=== PATIENT | female | born 1950 | race Caucasian/White ===

== ENCOUNTER 2019-07-16 06:12 | Day surgery (SDC) | payer OTHER, SELFPAY ==
[2019-07-16] MEDS: PROPARACAINE 0.5% OPHTH SOL 2 DROPS EYE-OP (07:09)
[2019-07-16 07:11] VITALS: BMI 46.4
[2019-07-16] MEDS: CATARACT EYE COMPOUND (10 DROPS/SYRINGE) 3 DROPS EYE-OP (07:14)
[2019-07-16 07:18] VITALS: BP 126/70; PULSE 79; RESP 15; TEMP 36.2; O2SAT 96
--- NOTE | 2019-07-16 07:32 | PM.PREOP ---
Pre-operative Note Interval Note History & Physical reviewed/Exam performed by Physician: Yes Changes to H&P: No
[2019-07-16] MEDS: CHONDROIDTIN/SOD HYALURONATE 1.05 ML SYRINGE INTRAOCULA (08:17)
[2019-07-16] MEDS: BALANCED SALT IRRIG SOLN NO.2 15 ML 5 ML IRR (08:18)
[2019-07-16] MEDS: LIDOCAINE 2% INJ SDV 2 ML INJ (08:18)
[2019-07-16] MEDS: PHENYLEPHRINE/LIDOCAINE VIAL (OR) 0.2 ML EYE-OP (08:19)
[2019-07-16] MEDS: MOXIFLOXACIN INJ 5 MG/ML VIAL EYE-OP (08:20)
[2019-07-16] MEDS: TETRACAINE 0.5% OPHTH DROPS 4 ML 2 DROPS EYE-OP (08:20)
[2019-07-16] MEDS: BALANCED SALT IRRIG SOLN NO.2 500 ML, EPINEPHrine 1 MG IRR (08:20)
--- NOTE | 2019-07-16 08:46 | PM.OP.1 ---
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 The correct patient, surgical site and lens were confirmed. 0.5 % tetracaine drops were placed in the left eye and the cornea was marked with a corneal reference marker. The patient was prepped and draped in the typical sterile manner. A lid speculum was placed in the eye. 2% lidocaine was placed on the eye. A paracentesis port was created with a side-port blade. 0.1 mL of 1% preservative free lidocaine with phenylephrine was injected into the anterior chamber. Viscoelastic was injected into the anterior chamber. A 2.6mm keratome was used to create a clear corneal temporal incision. Cystotome and Utrata forceps were used to create a continuous curvilinear capsulorrhexis. Balanced salt solution was used to hydrodissect the nucleus. Phacoemulsification was used to remove the lens. The capsular bag was inflated with viscoelastic and the cornea was marked at 144 degrees. A Steele ZCT 400 +18.0D lens was inserted into the capsule and rotated to 144 degrees. Viscoelastic was removed and the wound hydrated. The wound was found to be leak free and the eye was assessed to be at normal physiologic pressure. 0.1mL Vigamox was injected into the anterior chamber and the lens was confirmed to be in good position at 144 degrees. The lid speculum was removed and the patient left the operating room in excellent condition. Complications: none Post-operative Condition: stable Disposition: same day surgery
[2019-07-16 08:48] VITALS: BP 154/85; PULSE 67; RESP 20; TEMP 36.8; O2SAT 98
== END 2019-07-16 09:05 | disposition home or self-care (01) ==
PROVIDERS: Family Provider Family Medicine; PCP Family Medicine; Visit Provider Ophthalmology
PROC: (CPT 66984; principal; 2019-07-16 07:45)
DX: H25.12 Age-related nuclear cataract, left eye (principal); E11.9 Type 2 diabetes mellitus without complications; H40.013 Open angle with borderline findings, low risk, bilateral; H35.372 Puckering of macula, left eye
CPT/HCPCS: 66984; J0171; J2250; J3010; V2787

== ENCOUNTER 2019-08-06 06:27 | Day surgery (SDC) | payer OTHER, SELFPAY ==
--- NOTE | 2019-08-06 07:27 | PM.PREOP ---
Pre-operative Note Interval Note History & Physical reviewed/Exam performed by Physician: Yes Changes to H&P: No
[2019-08-06 07:32] VITALS: BP 149/77; PULSE 78; RESP 16; TEMP 36.3; O2SAT 93; BMI 46.8
[2019-08-06] MEDS: PROPARACAINE 0.5% OPHTH SOL 2 DROPS EYE-OP (07:44)
[2019-08-06] MEDS: CATARACT EYE COMPOUND (10 DROPS/SYRINGE) 3 DROPS EYE-OP (07:45)
[2019-08-06] MEDS: PHENYLEPHRINE/LIDOCAINE VIAL (OR) 0.2 ML EYE-OP (08:02)
[2019-08-06] MEDS: MOXIFLOXACIN INJ 5 MG/ML VIAL EYE-OP (08:02)
[2019-08-06] MEDS: TETRACAINE 0.5% OPHTH DROPS 4 ML 2 DROPS EYE-OP (08:03)
[2019-08-06] MEDS: CHONDROIDTIN/SOD HYALURONATE 1.05 ML SYRINGE INTRAOCULA (08:03)
[2019-08-06] MEDS: BALANCED SALT IRRIG SOLN NO.2 15 ML 5 ML IRR (08:03)
[2019-08-06] MEDS: BALANCED SALT IRRIG SOLN NO.2 500 ML, EPINEPHrine 1 MG IRR (08:04)
[2019-08-06] MEDS: LIDOCAINE 2% INJ SDV 2 ML INJ (08:04)
--- NOTE | 2019-08-06 08:30 | PM.OP.1 ---
Procedure & Clinicians Procedure: Cataract extraction with intraocular lens implant, right. Same procedure as scheduled: Yes Indications: Age related visually significant nuclear sclerosis, right Surgeon: Darnell Cota Click Yes if Unassisted: Yes Anesthesia Type: MAC +/- Operative Notes Procedure in detail: The patient was brought to the operating suite. The correct patient, surgical site and lens were confirmed. 0.5 % tetracaine drops were placed in the right eye and the cornea was marked with a cornea reference marker. The patient was prepped and draped in the typical sterile manner. A lid speculum was placed in the eye. 2% lidocaine was placed on the eye. A paracentesis port was created with a side-port blade. 0.1 mL of 1% preservative free lidocaine with phenylephrine was injected into the anterior chamber. Viscoelastic was injected into the anterior chamber. A 2.6mm keratome was used to create a clear corneal temporal incision. Cystotome and Utrata forceps were used to create a continuous curvilinear capsulorrhexis. Balanced salt solution was used to hydrodissect the nucleus. Phacoemulsification was used to remove the lens. The capsular bag was inflated with viscoelastic and the cornea was marked at 22 degrees. A Authernative GRP440 +17.5D lens was inserted into the capsule and rotated to 22 degrees. Viscoelastic was removed and the wound hydrated. The wound was found to be leak free and the eye was assessed to be at normal physiologic pressure. 0.1mL Vigamox was injected into the anterior chamber and the lens was confirmed to be in good position at 22 degrees. The lid speculum was removed and the patient left the operating room in excellent condition. Complications: none Post-operative Condition: stable Disposition: same day surgery
[2019-08-06 08:51] VITALS: BP 141/88; PULSE 73; RESP 16; TEMP 36.1; O2SAT 97
== END 2019-08-06 08:46 | disposition home or self-care (01) ==
PROVIDERS: PCP Family Medicine; Visit Provider Ophthalmology
PROC: (CPT 66984; principal; 2019-08-06 07:45)
DX: H25.11 Age-related nuclear cataract, right eye (principal); G47.33 Obstructive sleep apnea (adult) (pediatric); E03.9 Hypothyroidism, unspecified; E11.9 Type 2 diabetes mellitus without complications
CPT/HCPCS: 66984; J0171; J2250; J3010; V2787

== ENCOUNTER 2020-07-14 14:31 | Emergency (ER) | payer OTHER, SELFPAY ==
[2020-07-14 14:46] VITALS: BP 116/86; PULSE 92; RESP 16; TEMP 36.7; O2SAT 95
[2020-07-14 17:19] VITALS: BP 178/87; PULSE 97; RESP 20; TEMP 36.2; O2SAT 99
--- NOTE | 2020-07-14 18:05 | ED_ITS ---
HPI - Extremity Problem General Chief complaint: Extremity Problem,Nontraumatic Stated complaint: left arm and hand swollan Time Seen by Provider: 07/14/20 17:59 Source: patient Mode of arrival: Ambulatory Limitations: no limitations History of Present Illness HPI Narrative: 69-year-old female nonsmoker with history of valve repair and relatively recent pacemaker surgery presents with a day and a half of left arm swelling and no pain. She denies any injury. She denies any history of clot or cancer. She's had no fever, chills, nausea or vomiting. MD Complaint: extremity swelling Onset (ago): day(s) Location: left Associated symptoms: denies other symptoms Context: recent surgery/procedure Related Data Home Medications Medication Instructions Recorded Confirmed aspirin 325 mg PO DAILY 07/16/19 08/06/19 carvedilol 25 mg PO BID 07/16/19 08/06/19 levothyroxine 75 mcg PO DAILY 07/16/19 08/06/19 Previous Rx's Medication Instructions Recorded enoxaparin [Lovenox] 80 mg SUBCUT Q12H 7 Days #11.2 ml 07/14/20 enoxaparin [Lovenox] 100 mg SUBCUT Q12H 7 Days #14 ml 07/14/20 warfarin 5 mg PO DAILY #14 tab 07/14/20 Allergies Allergy/AdvReac Type Severity Reaction Status Date / Time codeine AdvReac Mild Headache Verified 07/14/20 14:46 lisinopril AdvReac Mild Cough Verified 07/14/20 14:46 atenolol AdvReac Unknown fatigue Verified 07/14/20 14:46 metoprolol AdvReac Unknown Joint Pain Verified 07/14/20 14:46 Review of Systems Constitutional Constitutional: Denies chills, Denies fatigue, Denies fever(s), Denies frequent falls, Denies lethargy and Denies weakness Eyes Eyes: Denies change in vision, Denies eye discharge, Denies irritation and Denies loss of vision ENT Ears, Nose, Mouth, and Throat: Denies change in voice, Denies dizziness, Denies neck pain, Denies sore throat and Denies throat swelling Cardiovascular Cardiovascular: Denies chest pain, Denies irregular heart rhythm, Denies lightheadedness, Denies palpitations, Denies dyspnea, Denies dyspnea on exertion and Denies orthopnea Respiratory Respiratory: Denies cough, Denies dyspnea, Denies dyspnea on exertion and Denies wheezing Gastrointestinal Gastrointestinal: Denies abdominal pain, Denies change in bowel habits, Denies diarrhea, Denies nausea and Denies vomiting Musculoskeletal Musculoskeletal: Denies neck pain and Denies numbness Integumentary/Breasts Skin/Breast: Denies pruritus, Denies erythema, Denies rash and Denies wounds Comments: arm swelling, redness Neurologic Neurologic: Denies behavioral changes, Denies confusion, Denies dizziness, Denies frequent falls, Denies loss of vision, Denies numbness and Denies weakness Psychiatric Psychiatric: Denies anxiety, Denies behavioral changes, Denies confusion, Denies depression, Denies homicidal ideation and Denies suicidal ideation Endocrine Endocrine: Denies fatigue, Denies flushing and Denies palpitations Hematologic/Lymphatic Hematologic/Lymphatic: Denies easy bruising Allergic/Immunologic Allergic/Immunologic: Denies urticaria, Denies throat swelling and Denies wheezing Patient History Medical History Diabetes Kidney disease Surgical History Status post aortic valve repair Social History household members: other Smoking Status: Never smoker Smoking Status: Never smoker alcohol intake frequency: holidays/special occasions only Substance Use Type: does not use Exam Narrative Exam Narrative: GENERAL: [69] year old patient appears stated age. Well- nourished, well-developed patient, in mild distress. HEAD: Atraumatic. Normocephalic. EYES: Pupils equal round and reactive. Extraocular motions intact. No scleral icterus. No injection or drainage. ENT: Nose without bleeding, purulent drainage. Throat without erythema, tonsillar hypertrophy or exudate. Airway patent. NECK: Trachea midline. Non tender CARDIOVASCULAR: Regular rate and rhythm without murmurs, gallops, or rubs. RESPIRATORY: Clear to auscultation. Breath sounds equal bilaterally. No wheezes, rales, or rhonchi. GASTROINTESTINAL: Abdomen soft, non-tender, nondistended. EXTREMITIES: Left upper extremity edema from the fingers to the axilla, mild erythema, pulse and sensation intact. No pain on palpation BACK: Nontender without deformity or crepitance. No flank tenderness. NEURO: AOx3. SKIN: No rash or erythema of visible areas Initial Vital Signs Initial Vital Signs: Vital Signs Temperature 98.1 F 07/14/20 14:46 Pulse Rate 92 H 07/14/20 14:46 Respiratory Rate 16 07/14/20 14:46 Blood Pressure 116/86 07/14/20 14:46 Pulse Oximetry 95 07/14/20 14:46 Course Orders Ordered: ED Orders 07/14/20 18:13 US periph venous up extrem lt Stat 07/14/20 18:37 Basic Metabolic Panel Stat C-Reactive Protein Quant Stat Complete Blood Count AUTO DIFF Stat Erythrocyte Sedimentation Rate Stat Prothrombin Time INR Stat Discontinued Medications Enoxaparin Sodium (Enoxaparin 100 Mg/Ml Syringe) 180 mg 1 mg/kg (180 mg) SUBCUT BID STEPHANI Enoxaparin Sodium (Enoxaparin 100 Mg/Ml Syringe) 180 mg 1 mg/kg (180 mg) SUBCUT NOW ONE Stop: 07/14/20 19:46 Last Admin: 07/14/20 19:48 Dose: 180 mg Documented by: SHARONA Vital Signs Vital signs: Vital Signs - 8 hr 07/14/20 20:04 Pulse Rate 95 H Respiratory Rate 15 Blood Pressure 196/84 H Pulse Oximetry 96 MDM - Extremity (Nontraumatic) Lab Data Result diagrams: 07/14/20 18:37 07/14/20 18:37 Labs: Lab Results 07/14/20 07/14/20 07/14/20 Range/Units 18:37 18:37 18:37 WBC 10.8 (4.5-11.0) X10^3/uL RBC 4.37 (4.0-5.2) X10^6/uL Hgb 13.1 (12.0-16.0) g/dL Hct 38.9 (36-46) % MCV 88.9 (80-100) fL MCH 30.1 (26-34) PG MCHC 33.8 (30-36) % RDW 13.4 (11.6-14.8) % Plt Count 256 (150-400) X10^3/uL Neut % (Auto) 73.4 (50-75) % Lymph % (Auto) 14.3 L (25-40) % [place] % (Auto) 8.1 (3-14) % Eos % (Auto) 3.2 (2-4) % Baso % (Auto) 1.0 (0-2) % Neut # (Auto) 7900 H (3233-7227) /uL Lymph # (Auto) 1500 (7106-8994) /uL [place] # (Auto) 900 (0-900) /uL Eos # (Auto) 300 (0-450) /uL Baso # (Auto) 100 (0-100) /uL ESR 28 H (0-20) MM/HR PT 12.0 (10.1-12.7) SECONDS INR 1.0 (0.9-1.3) Sodium 136 L (137-145) mmol/L Potassium 4.5 (3.4-5.1) mmol/L Chloride 103 (98-107) mmol/L Carbon Dioxide 30 (22-32) mmol/L BUN 22 H (7-17) mg/dL Creatinine 1.55 H (0.52-1.04) mg/dL Estimated GFR 33.3 L (>60) mL/min BUN/Creatinine Ratio 14.2 (6-22) Glucose 118 H (80-110) mg/dL Calcium 9.3 (8.4-10.2) mg/dL C-Reactive Protein 1.1 H (<1.0) mg/dL Imaging Data US - DVT: Radiologist's Impression: Rosa Mcqueen 69 F [address] [id number] ReportSigned Patient: Rosa Mcqueen EMR#: [id number]: 1950cct:[id number]/Sex: 69 / FDate of Service: 07/14/20Loc: EDAccession Number: [id number] Procedure: US periph venous up extrem lt Ordering Provider: Michel Dahl D.O. PROCEDURE: US PERIPH VENOUS UP EXTREM LT INDICATIONS: EDEMA TECHNIQUE: Real-time imaging, as well as color and pulse Doppler interrogation, was pe rformed of the left upper extremity deep veins from the inferior neck to the antecubital fossa. COMPARISON: None. FINDINGS: Thrombus is seen within the subclavian, axillary, cephalic, basilic, and brachial veins. IMPRESSION: Left upper extremity deep and superficial venous thrombus. Dictated by: Brii Middleton M.D. on 07/14/2020 at 19:20 Approved by: Brii Middleton M.D. on 07/14/2020 at 19:21 [facility] Narrative Medical decision making narrative: Given history of valve disease patient bridged on Lovenox and Rx given for coumadin. Extensive discussion with patient regarding the importance of close follow up with PCP to evaluate INR. REturn precautions given. Questions answered to her apparent satisfaction Discharge Plan Departure Patient Disposition: Home Clinical Impression: Deep venous thrombosis of upper extremity Instructions: Deep Vein Thrombosis Activity Restrictions/Additional Instructions: *You have been diagnosed with [DVT within your left subclavian, axillary, cephalic, basilic, and brachial veins] *What to do: *Take medications as directed: Your given a shot of Lovenox tonight, as well as a prescription for Coumadin. You will need to be on Lovenox and Coumadin until your Coumadin levels are therapeutic. Coumadin is a blood thinner that needs to be followed closely by your primary care provider or enrobing machine feeder as it often takes multiple days or weeks to get the levels just right. *Follow up very closely with your primary care provider, call in the morning for an appointment. Let them know you were seen in the Emergency Department and that we ask that you be seen in follow up *Return to ER if you should have any new, worsening or concerning symptoms, such as [any bleeding problems, or other bothersome symptoms] Prescriptions: New warfarin 5 mg tablet 5 mg PO DAILY Qty: 14 RF: 0 enoxaparin [Lovenox] 100 mg/mL syringe 100 mg SUBCUT Q12H 7 Days Qty: 14 RF: 0 enoxaparin [Lovenox] 80 mg/0.8 mL syringe 80 mg SUBCUT Q12H 7 Days Qty: 11.2 RF: 0 No Action carvedilol 25 mg Tablet 25 mg PO BID RF: 0 aspirin 325 mg Tablet 325 mg PO DAILY RF: 0 levothyroxine 75 mcg Tablet 75 mcg PO DAILY RF: 0 Referrals: [facility] [Outside] Faith Ornelas MD [Primary Care Provider] -
--- NOTE | 2020-07-14 18:13 | DI.US.S_ITS ---
PROCEDURE: US PERIPH VENOUS UP EXTREM LT INDICATIONS: EDEMA TECHNIQUE: Real-time imaging, as well as color and pulse Doppler interrogation, was performed of the left upper extremity deep veins from the inferior neck to the antecubital fossa. COMPARISON: None. FINDINGS: Thrombus is seen within the subclavian, axillary, cephalic, basilic, and brachial veins. IMPRESSION: Left upper extremity deep and superficial venous thrombus. Dictated by: Brii Middleton M.D. on 07/14/2020 at 19:20 Approved by: Brii Middleton M.D. on 07/14/2020 at 19:21
[2020-07-14 18:45] LABS: Add Manual Diff / Slide Review NO; Basophils Absolute Auto 100 /uL (0-100); Eosinophils Absolute Auto 300 /uL (0-450); Eosinophils Percent Auto 3.2 % (2-4); Hematocrit 38.9 % (36-46); Hemoglobin 13.1 g/dL (12.0-16.0); Lymphocytes Absolute Auto 1500 /uL (1100-4500); Lymphocytes Percent Auto 14.3 % (25-40); Mean Corpuscular HGB Conc 33.8 % (30-36); Mean Corpuscular Hemoglobin 30.1 PG (26-34); Mean Corpuscular Volume 88.9 fL (80-100); Monocytes Absolute Auto 900 /uL (0-900); Monocytes Percent Auto 8.1 % (3-14); Neutrophils Absolute Auto 7900 /uL (1500-7000); Neutrophils Percent Auto 73.4 % (50-75); Platelet Count 256 X10^3/uL (150-400); Red Blood Cell Count 4.37 X10^6/uL (4.0-5.2); Red Cell Distribution Width 13.4 % (11.6-14.8); White Blood Cell Count 10.8 X10^3/uL (4.5-11.0)
[2020-07-14 19:00] LABS: BUN Creatinine Ratio 14.2 (6-22); Blood Urea Nitrogen 22 mg/dL (7-17); C-Reactive Protein Quant 1.1 mg/dL (<1.0); Calcium 9.3 mg/dL (8.4-10.2); Carbon Dioxide 30 mmol/L (22-32); Chloride 103 mmol/L (98-107); Estimated Glomerular Filt Rate 33.3 mL/min (>60); Glucose 118 mg/dL (80-110); HEMOLYSIS < 15 (0-50); Potassium 4.5 mmol/L (3.4-5.1); Sodium 136 mmol/L (137-145)
[2020-07-14 19:06] LABS: Erythrocyte Sedimentation Rate 28 MM/HR (0-20)
[2020-07-14] MEDS: ENOXAPARIN 100 MG/ML SYRINGE 180 MG SUBCUT (19:48)
[2020-07-14 20:04] VITALS: BP 196/84; PULSE 95; RESP 15; O2SAT 96
--- NOTE | 2020-07-14 20:08 | PC.NURSE ---
Instructed patient on Lovenox injections. Discussed on how to give injections. Demonstrated one injections and Pt able to demonstrate an injection.
== END 2020-07-14 20:10 | disposition home or self-care (01) ==
PROVIDERS: Emergency Provider Emergency Medicine; PCP Family Medicine
DX: I82.622 Acute embolism and thrombosis of deep veins of left upper extremity (principal); Z95.5 Presence of coronary angioplasty implant and graft; Z95.0 Presence of cardiac pacemaker; Z79.82 Long term (current) use of aspirin; E11.9 Type 2 diabetes mellitus without complications; N18.9 Chronic kidney disease, unspecified
CPT/HCPCS: 36415; 80048; 85025; 85610; 85651; 86140; 93971; 96372; 99283; 99284; J1650

== ENCOUNTER → 2020-07-18 11:25 | Outpatient (CLI) | payer OTHER, SELFPAY ==
[2020-07-18 12:03] LABS: Add Manual Diff / Slide Review NO; Basophils Absolute Auto 100 /uL (0-100); Basophils Percent Auto 1.3 % (0-2); Eosinophils Absolute Auto 300 /uL (0-450); Hematocrit 36.8 % (36-46); Hemoglobin 12.2 g/dL (12.0-16.0); Lymphocytes Absolute Auto 1400 /uL (1100-4500); Lymphocytes Percent Auto 19.2 % (25-40); Mean Corpuscular HGB Conc 33.1 % (30-36); Mean Corpuscular Hemoglobin 29.5 PG (26-34); Mean Corpuscular Volume 89.1 fL (80-100); Monocytes Absolute Auto 800 /uL (0-900); Monocytes Percent Auto 11.1 % (3-14); Neutrophils Absolute Auto 4800 /uL (1500-7000); Neutrophils Percent Auto 64.4 % (50-75); Platelet Count 237 X10^3/uL (150-400); Red Blood Cell Count 4.13 X10^6/uL (4.0-5.2); Red Cell Distribution Width 13.6 % (11.6-14.8); White Blood Cell Count 7.5 X10^3/uL (4.5-11.0)
[2020-07-18 12:10] LABS: INR 1.3 (0.9-1.3); Prothrombin Time 15.1 SECONDS (10.1-12.7)
[2020-07-18 12:25] LABS: Estimated Glomerular Filt Rate 29.7 mL/min (>60)
== END ==
PROVIDERS: PCP Family Medicine; Referring Provider Emergency Medicine; Visit Provider Emergency Medicine
DX: I74.9 Embolism and thrombosis of unspecified artery (principal)
CPT/HCPCS: 36415; 82565; 85025; 85610

== ENCOUNTER → 2020-07-19 12:28 | Outpatient (CLI) | payer OTHER, SELFPAY ==
[2020-07-19 13:02] LABS: INR 1.5 (0.9-1.3)
[2020-07-19 13:12] LABS: Add Manual Diff / Slide Review NO; Basophils Absolute Auto 100 /uL (0-100); Basophils Percent Auto 1.1 % (0-2); Eosinophils Absolute Auto 300 /uL (0-450); Hematocrit 37.5 % (36-46); Hemoglobin 12.3 g/dL (12.0-16.0); Lymphocytes Absolute Auto 1600 /uL (1100-4500); Mean Corpuscular HGB Conc 32.9 % (30-36); Mean Corpuscular Hemoglobin 29.5 PG (26-34); Mean Corpuscular Volume 89.6 fL (80-100); Monocytes Absolute Auto 900 /uL (0-900); Monocytes Percent Auto 10.8 % (3-14); Neutrophils Absolute Auto 5100 /uL (1500-7000); Neutrophils Percent Auto 64.1 % (50-75); Platelet Count 244 X10^3/uL (150-400); Red Blood Cell Count 4.19 X10^6/uL (4.0-5.2); Red Cell Distribution Width 13.7 % (11.6-14.8)
[2020-07-19 13:26] LABS: Estimated Glomerular Filt Rate 32.3 mL/min (>60)
== END ==
PROVIDERS: PCP Family Medicine; Referring Provider Emergency Medicine; Visit Provider Emergency Medicine
DX: I74.9 Embolism and thrombosis of unspecified artery (principal)
CPT/HCPCS: 36415; 82565; 85025; 85610

== ENCOUNTER → 2020-07-20 12:10 | Outpatient (CLI) | payer OTHER, SELFPAY ==
[2020-07-20 12:54] LABS: Prothrombin Time 22.9 SECONDS (10.1-12.7)
== END ==
PROVIDERS: PCP Family Medicine; Referring Provider Emergency Medicine; Visit Provider Emergency Medicine
DX: I74.9 Embolism and thrombosis of unspecified artery (principal)
CPT/HCPCS: 36415; 85610

== ENCOUNTER → 2020-07-21 10:53 | Outpatient (CLI) | payer OTHER, SELFPAY ==
[2020-07-21 11:13] LABS: Add Manual Diff / Slide Review NO; Basophils Absolute Auto 100 /uL (0-100); Basophils Percent Auto 1.2 % (0-2); Eosinophils Absolute Auto 300 /uL (0-450); Eosinophils Percent Auto 4.5 % (2-4); Hematocrit 35.8 % (36-46); Hemoglobin 11.8 g/dL (12.0-16.0); Lymphocytes Absolute Auto 1500 /uL (1100-4500); Lymphocytes Percent Auto 22.4 % (25-40); Mean Corpuscular HGB Conc 32.9 % (30-36); Mean Corpuscular Hemoglobin 29.4 PG (26-34); Mean Corpuscular Volume 89.4 fL (80-100); Monocytes Absolute Auto 800 /uL (0-900); Neutrophils Absolute Auto 4100 /uL (1500-7000); Neutrophils Percent Auto 59.9 % (50-75); Platelet Count 222 X10^3/uL (150-400); Red Blood Cell Count 4.01 X10^6/uL (4.0-5.2); Red Cell Distribution Width 13.9 % (11.6-14.8); White Blood Cell Count 6.8 X10^3/uL (4.5-11.0)
[2020-07-21 11:21] LABS: INR 2.2 (0.9-1.3)
[2020-07-21 11:24] LABS: Estimated Glomerular Filt Rate 30.5 mL/min (>60)
== END ==
PROVIDERS: PCP Family Medicine; Referring Provider Emergency Medicine; Visit Provider Emergency Medicine
DX: I74.9 Embolism and thrombosis of unspecified artery (principal)
CPT/HCPCS: 36415; 82565; 85025; 85610

== ENCOUNTER → 2020-07-22 11:44 | Outpatient (CLI) | payer OTHER, SELFPAY ==
[2020-07-22 12:21] LABS: INR 2.1 (0.9-1.3); Prothrombin Time 23.7 SECONDS (10.1-12.7)
== END ==
PROVIDERS: PCP Family Medicine; Referring Provider Emergency Medicine; Visit Provider Emergency Medicine
DX: I82.409 Acute embolism and thrombosis of unspecified deep veins of unspecified lower extremity (principal)
CPT/HCPCS: 36415; 85610

== ENCOUNTER → 2020-07-26 10:07 | Outpatient (CLI) | payer OTHER, SELFPAY ==
[2020-07-26 10:50] LABS: Prothrombin Time 34.8 SECONDS (10.1-12.7)
== END ==
PROVIDERS: PCP Family Medicine; Referring Provider Internal Medicine Clinical Cardiac Electrophysiology; Visit Provider Internal Medicine Clinical Cardiac Electrophysiology
DX: I82.409 Acute embolism and thrombosis of unspecified deep veins of unspecified lower extremity (principal)
CPT/HCPCS: 36415; 85610

== ENCOUNTER → 2020-07-29 11:17 | Outpatient (CLI) | payer OTHER, SELFPAY ==
[2020-07-29 11:37] LABS: INR 3.3 (0.9-1.3); Prothrombin Time 37.6 SECONDS (10.1-12.7)
== END ==
PROVIDERS: PCP Family Medicine; Referring Provider Internal Medicine Clinical Cardiac Electrophysiology; Visit Provider Internal Medicine Clinical Cardiac Electrophysiology
DX: I82.409 Acute embolism and thrombosis of unspecified deep veins of unspecified lower extremity (principal)
CPT/HCPCS: 36415; 85610

== ENCOUNTER → 2020-08-11 10:50 | Outpatient (CLI) | payer OTHER, SELFPAY ==
[2020-08-11 11:14] LABS: INR 3.9 (0.9-1.3); Prothrombin Time 44.6 SECONDS (10.1-12.7)
== END ==
PROVIDERS: PCP Family Medicine; Referring Provider Internal Medicine Clinical Cardiac Electrophysiology; Visit Provider Internal Medicine Clinical Cardiac Electrophysiology
DX: I82.409 Acute embolism and thrombosis of unspecified deep veins of unspecified lower extremity (principal)
CPT/HCPCS: 36415; 85610

== ENCOUNTER → 2020-08-18 11:05 | Outpatient (CLI) | payer OTHER, SELFPAY ==
[2020-08-18 11:52] LABS: INR 2.8 (0.9-1.3); Prothrombin Time 32.2 SECONDS (10.1-12.7)
== END ==
PROVIDERS: PCP Family Medicine; Referring Provider Internal Medicine Clinical Cardiac Electrophysiology; Visit Provider Internal Medicine Clinical Cardiac Electrophysiology
DX: I82.409 Acute embolism and thrombosis of unspecified deep veins of unspecified lower extremity (principal)
CPT/HCPCS: 36415; 85610

== ENCOUNTER → 2020-09-01 11:08 | Outpatient (CLI) | payer OTHER, SELFPAY ==
[2020-09-01 12:39] LABS: INR 3.2 (0.9-1.3); Prothrombin Time 36.5 SECONDS (10.1-12.7)
== END ==
PROVIDERS: PCP Family Medicine; Referring Provider Internal Medicine Clinical Cardiac Electrophysiology; Visit Provider Internal Medicine Clinical Cardiac Electrophysiology
DX: I82.409 Acute embolism and thrombosis of unspecified deep veins of unspecified lower extremity (principal)
CPT/HCPCS: 36415; 85610

== ENCOUNTER → 2020-09-09 09:07 | Outpatient (CLI) | payer OTHER, SELFPAY ==
[2020-09-09 09:56] LABS: INR 2.9 (0.9-1.3); Prothrombin Time 33.3 SECONDS (10.1-12.7)
== END ==
PROVIDERS: PCP Family Medicine; Referring Provider Internal Medicine Clinical Cardiac Electrophysiology; Visit Provider Internal Medicine Clinical Cardiac Electrophysiology
DX: I82.409 Acute embolism and thrombosis of unspecified deep veins of unspecified lower extremity (principal)
CPT/HCPCS: 36415; 85610

== ENCOUNTER → 2020-09-23 10:09 | Outpatient (CLI) | payer OTHER, SELFPAY ==
[2020-09-23 11:38] LABS: INR 2.6 (0.9-1.3); Prothrombin Time 29.3 SECONDS (10.1-12.7)
[2020-09-23 12:04] LABS: Free T4, Direct Thyroxine 1.46 ng/dL (0.78-2.19)
[2020-09-23 13:35] LABS: Thyroid Stimulating Hormone 3.08 uIU/mL (0.47-4.68)
== END ==
PROVIDERS: Internal Medicine Clinical Cardiac Electrophysiology; PCP Family Medicine; Referring Provider Internal Medicine; Visit Provider Internal Medicine
DX: E89.0 Postprocedural hypothyroidism (principal); I82.409 Acute embolism and thrombosis of unspecified deep veins of unspecified lower extremity
CPT/HCPCS: 36415; 84439; 84443; 85610

== ENCOUNTER → 2020-10-14 12:30 | Outpatient (CLI) | payer OTHER, SELFPAY ==
[2020-10-14 12:54] LABS: INR 3.4 (0.9-1.3); Prothrombin Time 38.5 SECONDS (10.1-12.7)
== END ==
PROVIDERS: PCP Family Medicine; Referring Provider Internal Medicine Clinical Cardiac Electrophysiology; Visit Provider Internal Medicine Clinical Cardiac Electrophysiology
DX: I82.409 Acute embolism and thrombosis of unspecified deep veins of unspecified lower extremity (principal)
CPT/HCPCS: 36415; 85610

== ENCOUNTER → 2020-10-21 16:04 | Outpatient (CLI) | payer OTHER, SELFPAY ==
[2020-10-21 16:50] LABS: Hematocrit 38.7 % (36-46); Hemoglobin 12.9 g/dL (12.0-16.0)
[2020-10-21 17:23] LABS: BUN Creatinine Ratio 9.5 (6-22); Blood Urea Nitrogen 14 mg/dL (7-17); Calcium 9.7 mg/dL (8.4-10.2); Carbon Dioxide 24 mmol/L (22-32); Chloride 104 mmol/L (98-107); Estimated Glomerular Filt Rate 35.3 mL/min (>60); Glucose 121 mg/dL (80-110); HEMOLYSIS < 15 (0-50); Potassium 4.5 mmol/L (3.4-5.1); Sodium 138 mmol/L (137-145)
[2020-10-21 17:40] LABS: Protein (Total) Urine Random 40 mg/dL (0-12); Protein Creatinine Ratio Urine 0.32 GRAM/24H
[2020-10-22 08:08] LABS: Parathyroid Hormone Int 45 pg/mL (15-65)
== END ==
PROVIDERS: PCP Family Medicine; Referring Provider Student in an Organized Health Care Education/Training Program; Visit Provider Student in an Organized Health Care Education/Training Program
DX: N05.9 Unspecified nephritic syndrome with unspecified morphologic changes (principal); D64.9 Anemia, unspecified; N25.81 Secondary hyperparathyroidism of renal origin; R80.9 Proteinuria, unspecified
CPT/HCPCS: 36415; 80048; 82570; 83970; 84156; 85014; 85018

== ENCOUNTER → 2020-10-31 12:44 | Outpatient (CLI) | payer OTHER, SELFPAY ==
[2020-10-31 13:15] LABS: INR 2.1 (0.9-1.3); Prothrombin Time 23.4 SECONDS (10.1-12.7)
== END ==
PROVIDERS: PCP Family Medicine; Referring Provider Internal Medicine Clinical Cardiac Electrophysiology; Visit Provider Internal Medicine Clinical Cardiac Electrophysiology
DX: I82.409 Acute embolism and thrombosis of unspecified deep veins of unspecified lower extremity (principal)
CPT/HCPCS: 36415; 85610

== ENCOUNTER → 2020-11-21 13:33 | Outpatient (CLI) | payer OTHER, SELFPAY ==
[2020-11-21 13:57] LABS: INR 1.9 (0.9-1.3); Prothrombin Time 21.9 SECONDS (10.1-12.7)
== END ==
PROVIDERS: PCP Family Medicine; Referring Provider Internal Medicine Clinical Cardiac Electrophysiology; Visit Provider Internal Medicine Clinical Cardiac Electrophysiology
DX: I82.409 Acute embolism and thrombosis of unspecified deep veins of unspecified lower extremity (principal)
CPT/HCPCS: 36415; 85610

== ENCOUNTER → 2020-12-06 10:06 | Outpatient (CLI) | payer OTHER, SELFPAY ==
[2020-12-06 10:43] LABS: INR 2.1 (0.9-1.3); Prothrombin Time 23.7 SECONDS (10.1-12.7)
== END ==
PROVIDERS: PCP Family Medicine; Referring Provider Internal Medicine Clinical Cardiac Electrophysiology; Visit Provider Internal Medicine Clinical Cardiac Electrophysiology
DX: I82.409 Acute embolism and thrombosis of unspecified deep veins of unspecified lower extremity (principal)
CPT/HCPCS: 36415; 85610

== ENCOUNTER → 2020-12-20 12:31 | Outpatient (CLI) | payer OTHER, SELFPAY ==
--- NOTE | 2020-12-20 12:32 | DI.RAD.S_ITS ---
PROCEDURE: XR CHEST 2V INDICATIONS: cough, wheezing, SOB TECHNIQUE: 2 views of the chest were acquired. COMPARISON: None. FINDINGS: Surgical changes and devices: Pacemaking device with dual chamber leads normal. Sternotomy wires, presumed prior CABG. Lungs and pleura: Lungs are clear. No pleural effusions or pneumothorax. Mediastinum: Mediastinal contours are abnormal, best seen on the lateral view, with alveolar consolidation at each lung base greater on the left than right. A slight subpulmonic pleural effusion is suspected bilaterally but lung volumes are large and COPD is suspected, and blunting of the costophrenic sulci may explain that appearance alternatively.. Heart size is normal. Bones and chest wall: No suspicious bony abnormalities. Soft tissues appear unremarkable. IMPRESSION: Suspect bilateral posterior lung base pneumonia pattern. Large lung volumes, COPD is suspected. Quality of visualization due to light film technique and part large body habitus could obscure visualization of a left lung base posterior mass. Depending on the clinical status follow-up by CT scanning may be warranted given relatively poor quality visualization of the lungs and suspected prior smoking history. Dictated by: Alfred Mckeon M.D. on 12/20/2020 at 14:59 Approved by: Alfred Mckeon M.D. on 12/20/2020 at 15:00
== END ==
PROVIDERS: PCP Nurse Practitioner; Referring Provider Nurse Practitioner; Visit Provider Nurse Practitioner
DX: R06.02 Shortness of breath (principal); R05 Cough; R06.2 Wheezing
CPT/HCPCS: 71046

== ENCOUNTER → 2021-01-05 08:06 | Outpatient (CLI) | payer OTHER, SELFPAY ==
[2021-01-05 10:07] LABS: BUN Creatinine Ratio 13.5; Blood Urea Nitrogen 20 mg/dL; Calcium 9.2 mg/dL; Carbon Dioxide 22 mmol/L; Chloride 106 mmol/L; Estimated Glomerular Filt Rate 47.1 mL/min; Glucose 134 mg/dL; HEMOLYSIS < 15; Potassium 4.1 mmol/L; Sodium 137 mmol/L
[2021-01-05 13:29] LABS: Free T4, Direct Thyroxine 1.58 ng/dL
[2021-01-05 13:43] LABS: Thyroid Stimulating Hormone 2.91 uIU/mL
[2021-01-06 21:28] LABS: Thyroglobulin Antibodies < 1.0 IU/mL (0.0-0.9)
== END ==
PROVIDERS: PCP Nurse Practitioner; Referring Provider Internal Medicine; Visit Provider Internal Medicine
DX: Z01.812 Encounter for preprocedural laboratory examination (principal); C73 Malignant neoplasm of thyroid gland; E89.0 Postprocedural hypothyroidism
CPT/HCPCS: 36415; 80048; 83735; 84432; 84439; 84443; 86800

== ENCOUNTER → 2021-01-16 13:18 | Outpatient (CLI) | payer OTHER, SELFPAY ==
--- NOTE | 2021-01-16 13:41 | DI.ECHO.S_ITS ---
:Reason For Study: Congestive Heart Failure :Ordering Physician: BRIGIDO, : :BARRY Performed By: Jeffrey Moss : :Referring: BARRY FOFANA : Interpretation Summary Technically difficult study. Mild concentric left ventricular hypertrophy with ejection fraction 50-55%. The bioprosthetic aortic valve is well-seated. Probably moderate mitral regurgitation. Mild tricuspid regurgitation. The right ventricular systolic pressure is estimated to be at least 33 mmHg based on an estimated right atrial pressure of 3 mm Hg. Procedure: A two-dimensional transthoracic echocardiogram with color flow and Doppler was performed. The study quality was technically difficult. A contrast injection of Definity was performed to improve assessment of LV function. There is no prior echocardiogram noted for this patient. Left Ventricle: The left ventricle is normal in size. There is mild concentric left ventricular hypertrophy. Left ventricular systolic function is low normal. The ejection fraction is estimated to be 50-55%. There are no obvious focal wall motion abnormalities noted but poor endocardial definition reduces the sensitivity for the detection of such. Diastolic function could not be accurately assessed due to unobtainable data. Right Ventricle: The right ventricle grossly appears normal in size with probable normal systolic function. The right ventricle is not well visualized. Atria: The left atrium is not well visualized. Right atrium not well visualized. There is no Doppler evidence for an interatrial shunt. Mitral Valve: The mitral valve is not well visualized. There is moderate mitral regurgitation. Evaluation of regurgitation is inadequate. Aortic Valve: There is a bioprosthetic aortic valve. The prosthetic aortic valve is well-seated. The prosthetic aortic valve appears to open well. No aortic regurgitation is present. Tricuspid Valve: The tricuspid valve is normal in structure and function. There is mild tricuspid regurgitation. The right ventricular systolic pressure is estimated to be at least 33 mmHg based on an estimated right atrial pressure of 3 mm Hg. Pulmonic Valve: The pulmonic valve is not well visualized. Great Vessels: The aortic root is not well visualized. The dimensions of the ascending aorta are normal. The IVC is of normal diameter and collapses greater than 50% with a sniff. This suggests a low right atrial pressure of 3 mm Hg. Pericardium/ Pleura There is no pericardial effusion. There is no pleural effusion. MMode/2D Measurements & Calculations LVIDd: 5.6 cm asc Aorta Diam: 3.0 cm LVIDs: 4.3 cm FS: 24.3 % IVSd: 1.4 cm LVPWd: 1.2 cm LV cummings. diameter/BSA (cm/m^2): 2.0 LV sys. diameter/BSA (cm/m^2): 1.5 TAPSE: 1.8 cm Doppler Measurements & Calculations Ao V2 max: 242.2 cm/sec LVOT Max Kamaljit: 107.8 cm/sec Ao V2 mean: 164.4 cm/sec LV V1 max P.6 mmHg Ao max P.5 mmHg LV V1 VTI: 24.8 cm Ao mean P.3 mmHg sev ratio: 0.51 Ao V2 VTI: 48.2 cm MV E max kamaljit: 177.2 cm/sec TR max kamaljit: 273.3 cm/sec MV A max kamaljit: 94.0 cm/sec TR max P.9 mmHg MV E/A: 1.9 PA V2 max: 98.6 cm/sec Med Peak E' Kamaljit: 5.9 cm/sec PA V2 mean: 66.0 cm/sec E/E' med: 30.1 PA mean P.9 mmHg Lat Peak E' Kamaljit: 10.7 cm/sec PA pr(Accel): 37.5 mmHg E/E' lat: 16.5 E/e' average: 23.3 MV dec time: 0.33 sec Electronically signed by: Ce Kramer on Reading Physician:01/16/2021 05:57 PM
== END ==
PROVIDERS: PCP Nurse Practitioner; Referring Provider Nurse Practitioner; Visit Provider Nurse Practitioner
DX: I07.1 Rheumatic tricuspid insufficiency (principal); R05 Cough; Z86.79 Personal history of other diseases of the circulatory system; Z95.0 Presence of cardiac pacemaker; Z95.3 Presence of xenogenic heart valve
CPT/HCPCS: C8929; Q9957

== ENCOUNTER → 2021-01-17 14:04 | Outpatient (CLI) | payer OTHER, SELFPAY ==
--- NOTE | 2021-01-17 14:06 | DI.CT.S_ITS ---
PROCEDURE: CT CHEST WO CON INDICATIONS: LL Mass, shortness of breath, smoking history TECHNIQUE: Noncontrast 5 mm thick sections acquired from the pulmonary apices to the posterior costophrenic angles. 1 mm lung window, 5 mm thick coronal and sagittal and 7 mm axial MIP reformats were then acquired. For radiation dose reduction, the following was used: automated exposure control, adjustment of mA and/or kV according to patient size. COMPARISON: [facility], CT, CT CHEST WITHOUT CONTRAST, 05/27/2017, 13:54. FINDINGS: Image quality: Excellent. Lungs and pleura: Bibasilar atelectasis and/or scarring is similar to the prior exam. Pleural effusions have resolved Mediastinum: Heart size is normal. No pericardial effusion. No mediastinal adenopathy by size criteria. Thoracic aorta and central pulmonary arteries are normal in size. Esophagus is normal in caliber. No hiatal hernia. Aortic valve replacement remains unchanged. Bones and chest wall: No suspicious bony lesions. No vertebral body compression fractures. No axillary or supraclavicular adenopathy by size criteria. Left hemithyroidectomy present. There is now a left-sided pacemaker present. Midline sternal wires again noted. Abdomen: Visualized upper abdominal solid organs and bowel loops appear normal in the absence of contrast. IMPRESSION: 1. Stable bibasilar atelectasis and or scarring. 2. Resolved left pleural effusion. 3. New dual-chamber pacemaker, stable midline sternotomy wires and aortic valve replacement. Dictated by: Jorge A Curry M.D. on 01/17/2021 at 16:34 Approved by: Jroge A Curry M.D. on 01/17/2021 at 16:59
== END ==
PROVIDERS: PCP Nurse Practitioner; Referring Provider Nurse Practitioner; Visit Provider Nurse Practitioner
DX: R06.02 Shortness of breath (principal); Z95.0 Presence of cardiac pacemaker; R91.8 Other nonspecific abnormal finding of lung field; Z87.891 Personal history of nicotine dependence
CPT/HCPCS: 71250

== ENCOUNTER → 2021-01-19 12:43 | Outpatient (CLI) | payer OTHER, SELFPAY ==
[2021-01-19 19:23] LABS: BUN Creatinine Ratio 11.5; Blood Urea Nitrogen 22 mg/dL; Calcium 9.5 mg/dL; Carbon Dioxide 24 mmol/L; Chloride 103 mmol/L; Estimated Glomerular Filt Rate 34.9 mL/min; Glucose 109 mg/dL; HEMOLYSIS < 15; Potassium 4.5 mmol/L; Sodium 138 mmol/L
== END ==
PROVIDERS: PCP Nurse Practitioner; Referring Provider Nurse Practitioner; Visit Provider Nurse Practitioner
DX: E87.6 Hypokalemia (principal); R60.9 Edema, unspecified; T50.2X5A Adverse effect of carbonic-anhydrase inhibitors, benzothiadiazides and other diuretics, initial encounter
CPT/HCPCS: 36415; 80048; 83735

== ENCOUNTER → 2021-02-02 15:12 | Outpatient (CLI) | payer OTHER, SELFPAY ==
[2021-02-02 17:13] LABS: Hematocrit 38.4 %; Hemoglobin 12.6 g/dL
[2021-02-02 21:02] LABS: BUN Creatinine Ratio 9.6; Blood Urea Nitrogen 18 mg/dL; Calcium 9.2 mg/dL; Carbon Dioxide 23 mmol/L; Chloride 104 mmol/L; Glucose 89 mg/dL; HEMOLYSIS < 15; Potassium 3.9 mmol/L; Sodium 136 mmol/L
[2021-02-02 21:04] LABS: Protein (Total) Urine Random 24 mg/dL
[2021-02-02 21:09] LABS: Magnesium 1.8 mg/dL
[2021-02-03 08:46] LABS: Parathyroid Hormone Int 53 pg/mL (15-65)
== END ==
PROVIDERS: PCP Nurse Practitioner; Referring Provider Student in an Organized Health Care Education/Training Program; Visit Provider Student in an Organized Health Care Education/Training Program
DX: N05.9 Unspecified nephritic syndrome with unspecified morphologic changes (principal); R80.9 Proteinuria, unspecified; D64.9 Anemia, unspecified; N25.81 Secondary hyperparathyroidism of renal origin; R60.0 Localized edema; T50.1X5A Adverse effect of loop [high-ceiling] diuretics, initial encounter
CPT/HCPCS: 36415; 80048; 82570; 83735; 83970; 84156; 85014; 85018

== ENCOUNTER → 2021-03-28 16:20 | Outpatient (CLI) | payer OTHER, SELFPAY ==
[2021-03-28 18:42] LABS: Cholesterol 182 mg/dL; HDL Cholesterol 45 mg/dL; LDL Cholesterol Calculated 112 mg/dL; Triglycerides 126 mg/dL
== END ==
PROVIDERS: PCP Nurse Practitioner; Referring Provider Internal Medicine Cardiovascular Disease; Visit Provider Internal Medicine Cardiovascular Disease
DX: E78.5 Hyperlipidemia, unspecified (principal)
CPT/HCPCS: 36415; 80061

== ENCOUNTER → 2021-06-15 11:29 | Outpatient (CLI) | payer OTHER, SELFPAY ==
[2021-06-15 12:21] LABS: Hematocrit 37.9 %; Hemoglobin 12.8 g/dL; Mean Corpuscular HGB Conc 33.8 %; Mean Corpuscular Hemoglobin 29.7 PG; Mean Corpuscular Volume 87.9 fL; Platelet Count 237 X10^3/uL; Red Blood Cell Count 4.31 X10^6/uL; White Blood Cell Count 7.3 X10^3/uL
[2021-06-15 14:12] LABS: Alanine Aminotransferase 21 IU/L; Albumin 3.8 g/dL; Albumin Globulin Ratio 1.2; Alkaline Phosphatase 64 U/L; Aspartate Aminotransferase 25 IU/L; BUN Creatinine Ratio 14.3; Bilirubin Total 0.7 mg/dL; Blood Urea Nitrogen 25 mg/dL; Calcium 9.3 mg/dL; Carbon Dioxide 25 mmol/L; Chloride 104 mmol/L; Estimated Glomerular Filt Rate 38.8 mL/min; Globulin 3.3 g/dL; Glucose 118 mg/dL; HEMOLYSIS < 15; Potassium 4.8 mmol/L; Sodium 138 mmol/L; Total Protein 7.1 g/dL
[2021-06-15 14:25] LABS: Magnesium 2.1 mg/dL
[2021-06-15 22:12] LABS: Creatinine Urine Random 55.2 mg/dL; Protein (Total) Urine Random 11 mg/dL; Protein Creatinine Ratio Urine 0.19 GRAM/24H
[2021-06-16 08:42] LABS: Parathyroid Hormone Int 46 pg/mL (15-65)
== END ==
PROVIDERS: PCP Nurse Practitioner; Referring Provider Student in an Organized Health Care Education/Training Program; Visit Provider Student in an Organized Health Care Education/Training Program
DX: N05.9 Unspecified nephritic syndrome with unspecified morphologic changes (principal); D64.9 Anemia, unspecified; N25.81 Secondary hyperparathyroidism of renal origin; R80.9 Proteinuria, unspecified; I10 Essential (primary) hypertension; R60.0 Localized edema; Z79.899 Other long term (current) drug therapy
CPT/HCPCS: 36415; 80053; 82570; 83735; 83970; 84156; 85027

== ENCOUNTER → 2021-07-12 11:30 | Outpatient (CLI) | payer OTHER, MEDICARE, SELFPAY | PROVIDERS: PCP Nurse Practitioner; Referring Provider Internal Medicine Endocrinology, Diabetes & Metabolism; Visit Provider Internal Medicine Endocrinology, Diabetes & Metabolism | DX: E89.0 Postprocedural hypothyroidism (principal) | CPT/HCPCS: 36415; 84443 ==

== ENCOUNTER → 2021-11-23 12:13 | Outpatient (CLI) | payer MEDICARE, OTHER, SELFPAY ==
[2021-11-23 13:53] LABS: Hematocrit 38.6 % (36-46); Hemoglobin 13.1 g/dL (12.0-16.0)
[2021-11-23 14:14] LABS: BUN Creatinine Ratio 12.3 (6-22); Blood Urea Nitrogen 21 mg/dL (7-17); Carbon Dioxide 30 mmol/L (22-32); Chloride 100 mmol/L (98-107); Estimated Glomerular Filt Rate 32 mL/min (>60); Glucose 117 mg/dL (80-110); HEMOLYSIS < 15 (0-50); Potassium 4.4 mmol/L (3.4-5.1); Sodium 135 mmol/L (137-145)
[2021-11-23 14:15] LABS: Alanine Aminotransferase 15 IU/L (<35); Albumin 3.9 g/dL (3.5-5.0); Albumin Globulin Ratio 1.1 (1.0-2.8); Alkaline Phosphatase 58 U/L (38-126); Aspartate Aminotransferase 22 IU/L (14-36); BUN Creatinine Ratio 12.4 (6-22); Bilirubin Total 0.6 mg/dL (0.2-1.3); Blood Urea Nitrogen 21 mg/dL (7-17); Carbon Dioxide 29 mmol/L (22-32); Chloride 101 mmol/L (98-107); Estimated Glomerular Filt Rate 32 mL/min (>60); Globulin 3.7 g/dL (1.7-4.1); Glucose 117 mg/dL (80-110); HEMOLYSIS < 15 (0-50); Magnesium 2.1 mg/dL (1.6-2.3); Potassium 4.4 mmol/L (3.4-5.1); Sodium 135 mmol/L (137-145); Total Protein 7.6 g/dL (6.3-8.2)
[2021-11-23 16:54] LABS: Creatinine Urine Random 41.5 mg/dL; Protein (Total) Urine Random 12 mg/dL (0-12); Protein Creatinine Ratio Urine 0.28 GRAM/24H
[2021-11-24 08:14] LABS: Parathyroid Hormone Int 41 pg/mL (15-65)
== END ==
PROVIDERS: PCP Nurse Practitioner; Referring Provider Student in an Organized Health Care Education/Training Program; Visit Provider Student in an Organized Health Care Education/Training Program
DX: I10 Essential (primary) hypertension (principal); N05.9 Unspecified nephritic syndrome with unspecified morphologic changes; D64.9 Anemia, unspecified; N25.81 Secondary hyperparathyroidism of renal origin; R80.9 Proteinuria, unspecified; R18.8 Other ascites; R60.0 Localized edema; T50.1X5A Adverse effect of loop [high-ceiling] diuretics, initial encounter
CPT/HCPCS: 36415; 80048; 80053; 82570; 83735; 83970; 84156; 85014; 85018

== ENCOUNTER → 2022-01-10 10:05 | Outpatient (CLI) | payer MEDICARE, OTHER, SELFPAY ==
[2022-01-10 13:59] LABS: COVID19 -Nasal RAPID Negative (Negative)
== END ==
PROVIDERS: PCP Nurse Practitioner; Visit Provider Surgery
DX: Z20.822 Contact with and (suspected) exposure to COVID-19 (principal); Z01.812 Encounter for preprocedural laboratory examination
CPT/HCPCS: 87635; C9803

== ENCOUNTER 2022-01-11 08:13 | Day surgery (SDC) | payer MEDICARE, OTHER, SELFPAY ==
--- NOTE | 2022-01-11 | PATH_ITS ---
[facility] Accession Number: [id number] No. of containers..02 Tissue . 01 Material submitted: . PART A: colon - TRANSVERSE COLON POLYP PART B: colon - DESCENDING COLON POLYP . 01 Diagnosis: A. Transverse Colon Polyp, Biopsy: Tubular adenoma. . B. Descending Colon Polyp, Biopsy: Sessile serrated adenoma. MRV 01/12/2022 1602 Local . 01 Electronically signed: . Moy Pugh MD, PhD, Pathologist NPI- [id number] . 01 Gross description: . Part A: TRANSVERSE COLON POLYP: Received in formalin is 1 fragment(s) of fischer, soft tissue measuring 0.5 x 0.4 x 0.4 cm submitted entirely in 1 cassette(s) Part B: DESCENDING COLON POLYP: Received in formalin is 1 fragment(s) of fischer, soft tissue measuring 0.7 x 0.6 x 0.6 cm submitted entirely in 1 cassette(s) /BLAKE 01/12/2022 0016 Local . 01 Pathologist provided ICD-10: D12.3, D12.4 . 01 CPT . 128523, 111397 Specimen Comment: A courtesy copy of this report has been sent to [phone] Performed at: 01 [facility] [address] [place] [address] [address], [place], [place] [id number] MD Ollie Maldonado MD Phone: [phone]
[2022-01-11 08:54] VITALS: BMI 47.5
[2022-01-11] MEDS: LACTATED RINGERS 1,000 ML 42 ML IV (09:01)
[2022-01-11 09:02] VITALS: BP 172/91; PULSE 90; RESP 16; TEMP 36.4; O2SAT 98
[2022-01-11 09:05] VITALS: BP 149/76
--- NOTE | 2022-01-11 09:16 | PM.HP.1 ---
History of Present Illness History of Present Illness Date Patient Seen: 01/11/22 Time Patient Seen: 09:16 Chief complaint: INC Narrative: Rosa is here for her colonoscopy. See office note from November for details. Patient History Medical History (Updated 12/20/21 @ 15:15 by ELDA Kilgore) Allergies Anxiety (~2019) Chronic cough Class 3 obesity Diabetes Edema Hearing loss Heart block AV complete History of CHF (congestive heart failure) History of DVT (deep vein thrombosis) History of pacemaker Hypertension Hypothyroidism (acquired) Kidney disease Kidney stones Mumps Sleep apnea (~2007) Thyroid nodule Warfarin anticoagulation Surgical History Anesthesia History of aortic valve replacement with porcine valve History of partial nephrectomy (~2016) History of partial thyroidectomy (~2017) Pacemaker (~2019) Status post aortic valve repair (~2011) Status post gender reassignment surgery (~2003) Family & Social History Family History Mother Breast cancer Uterine cancer Mental health problem Sister Mental health problem Grandfather History of heart disease Grandmother Mental health problem Grandfather Broken hip Grandmother Brain bleed Social History: household members other Tobacco & Substance use: Smoking Status Never smoker alcohol intake never alcohol intake frequency holiday/special occasion Substance Use Type does not use Meds Home Medications and Allergies Home Medications Medication Instructions Recorded Confirmed Type carvedilol 25 mg tablet 25 mg PO BID 07/16/19 01/11/22 History bupropion HCl 300 mg 24 hr tablet, 300 mg PO QAM #90 tabs 06/06/21 01/11/22 Rx extended release furosemide 20 mg tablet 40 mg PO DAILY PRN Edema 06/06/21 01/11/22 History levothyroxine 88 mcg tablet 88 mcg PO DAILY 06/06/21 01/11/22 History warfarin 5 mg tablet See Rx Instructions PO .COMPLEX 10/24/21 01/11/22 History naltrexone 50 mg tablet 25 mg PO BID 01/11/22 01/11/22 History potassium chloride 20 mEq 20 meq PO DAILY PRN Edema 01/11/22 01/11/22 History tablet,extended release terazosin 1 mg capsule 1 mg PO DAILY 01/11/22 01/11/22 History Allergies Allergy/AdvReac Type Severity Reaction Status Date / Time codeine AdvReac Mild Headache Verified 11/15/21 13:11 lisinopril AdvReac Mild Cough Verified 11/15/21 13:11 atenolol AdvReac Unknown fatigue Verified 11/15/21 13:11 metoprolol AdvReac Unknown Joint Pain Verified 11/15/21 13:11 Exam Vital Signs (past 8 hours): - 01/11/22 09:02 01/11/22 09:05 Temperature 97.6 F Pulse Rate 90 Respiratory Rate 16 Blood Pressure 172/91 H 149/76 H Pulse Oximetry 98 Oxygen Delivery Method Room Air Oxygen Delivery Method Room Air Const Nutritional Appearance: obese Assessment & Plan Assessment and plan (1) History of colon polyps: Status: Acute Plan Risks and benefits of colonoscopy reviewed. She would like to proceed. Time Spent With Patient Critical Care time: I spent a total of [] minutes of critical care time on this patient's care today; this time is exclusive of procedural time.
[2022-01-11] MEDS: fentaNYL 250 MCG/5 ML INJ 150 MCG IV (09:44)
[2022-01-11] MEDS: MIDAZOLAM 5 MG/5 ML VIAL 7 MG IV (09:44)
--- NOTE | 2022-01-11 09:57 | PM.OP.COLON ---
Operative Date/Time/Diagnoses Date of procedure: 01/11/22 Time of procedure: 09:57 Pre-op diagnosis: History of polyps Post-op diagnosis: same Procedure & Clinicians Study performed: Colonoscopy Same procedure as scheduled: Yes Surgeon: Ridge Alfaro Procedure Notes Procedure in detail: Surgeon: Ridge Alfaro MD Procedure: The patient was brought to the endoscopy suite, placed in left lateral decubitus position. The patient was connected to monitoring devices. A time-out was performed. Sedation was administered. Once the patient was adequately sedated, a digital rectal exam was performed and was normal. The scope was then inserted and advanced to the cecum where the appendiceal orifice was identified and photographed. The scope was then slowly withdrawn over greater than 6 minutes. The mucosa was thoroughly inspected. There was a 2 cm lipoma in the proximal transverse colon. There was a 7 mm layer polyp in the midtransverse colon removed with cold snare. There was a 7 mm polyp in the descending colon removed with cold snare. The scope was retroflexed in the rectum. No abnormalities were noted there. The scope was straightened and removed. The patient was awakened and brought to recovery. Versed: 7 mg Fentanyl: 150 mcg EBL: 5 mL Findings: Proximal transverse colon lipoma, 7 mm polyps in the transverse and descending colon. Scope withdrawal time: 10 Sedation minutes: 18 Post-procedure Recommendations: Will call with biopsy results Disposition: PACU
[2022-01-11 10:00] VITALS: BP 151/66; PULSE 78; RESP 16; TEMP 36.2; O2SAT 97
[2022-01-11 10:05] VITALS: BP 151/86; PULSE 82; RESP 16; O2SAT 98
[2022-01-11 10:17] VITALS: BP 151/85; PULSE 74; RESP 16; TEMP 36.2; O2SAT 100
[2022-01-11 10:28] VITALS: BP 164/84; PULSE 70; RESP 18; TEMP 35.8; O2SAT 96
--- NOTE | 2022-01-11 10:39 | SUR.PHASEII ---
01/11/2261-2031-wnybph from Sreekanth James Added to home instructions to by Sreekanth to resume blood thinner tommorrow. Pacemaker no interogation needed. 1040-Discharged with glasses,coreg pill/bottle and instructions to home with friend [employer] has all belongings. no pain. abdomen soft/large. met criteria for discharge.
== END 2022-01-11 10:40 | disposition home or self-care (01) ==
PROVIDERS: PCP Nurse Practitioner; Referring Provider Surgery; Visit Provider Surgery
PROC: 0DJD8ZZ Inspection of Lower Intestinal Tract, Via Natural or Artificial Opening Endoscopic (ICD-10-PCS; CPT 45378; principal; 2022-01-11 09:15)
DX: Z12.11 Encounter for screening for malignant neoplasm of colon (principal); Z86.010 Personal history of colon polyps; D12.3 Benign neoplasm of transverse colon; D12.4 Benign neoplasm of descending colon
CPT/HCPCS: 45385; 85610; 99152; J2250; J3010

== ENCOUNTER → 2022-01-18 13:29 | Outpatient (CLI) | payer MEDICARE, OTHER, SELFPAY ==
[2022-01-18 15:39] LABS: Hemoglobin A1C% w Est Avg Glu 6.1 % (4.0-6.0)
[2022-01-19 13:10] LABS: Calcium 9.1 mg/dL (8.7-10.3); Parathyroid Hormone, Intact 34 pg/mL (15-65)
== END ==
PROVIDERS: PCP Nurse Practitioner; Referring Provider Nurse Practitioner; Visit Provider Nurse Practitioner
DX: N28.9 Disorder of kidney and ureter, unspecified (principal); E11.9 Type 2 diabetes mellitus without complications
CPT/HCPCS: 36415; 82310; 83036; 83970

== ENCOUNTER → 2022-01-31 12:38 | Outpatient (CLI) | payer MEDICARE, OTHER, SELFPAY ==
[2022-01-31 13:15] LABS: Add Manual Diff / Slide Review NO; Basophils Absolute Auto 100 /uL (0-100); Basophils Percent Auto 1.2 % (0-2); Eosinophils Absolute Auto 200 /uL (0-450); Eosinophils Percent Auto 2.9 % (2-4); Hematocrit 38.5 % (36-46); Hemoglobin 12.9 g/dL (12.0-16.0); Lymphocytes Absolute Auto 1100 /uL (1100-4500); Lymphocytes Percent Auto 13.5 % (25-40); Mean Corpuscular HGB Conc 33.6 % (30-36); Mean Corpuscular Hemoglobin 29.5 PG (26-34); Mean Corpuscular Volume 87.9 fL (80-100); Monocytes Absolute Auto 700 /uL (0-900); Monocytes Percent Auto 8.6 % (3-14); Neutrophils Absolute Auto 6000 /uL (1500-7000); Neutrophils Percent Auto 73.8 % (50-75); Platelet Count 242 X10^3/uL (150-400); Red Blood Cell Count 4.39 X10^6/uL (4.0-5.2); Red Cell Distribution Width 14.1 % (11.6-14.8); White Blood Cell Count 8.1 X10^3/uL (4.5-11.0)
[2022-01-31 13:42] LABS: Alanine Aminotransferase 20 IU/L (<35); Albumin 3.6 g/dL (3.5-5.0); Albumin Globulin Ratio 1.1 (1.0-2.8); Alkaline Phosphatase 60 U/L (38-126); Aspartate Aminotransferase 23 IU/L (14-36); BUN Creatinine Ratio 10.9 (6-22); Bilirubin Total 0.5 mg/dL (0.2-1.3); Blood Urea Nitrogen 17 mg/dL (7-17); Calcium 8.7 mg/dL (8.4-10.2); Carbon Dioxide 23 mmol/L (22-32); Chloride 104 mmol/L (98-107); Cholesterol 182 mg/dL (140-199); Estimated Glomerular Filt Rate 36 mL/min (>60); Globulin 3.3 g/dL (1.7-4.1); Glucose 112 mg/dL (80-110); HDL Cholesterol 56 mg/dL (40-60); HEMOLYSIS < 15 (0-50); LDL Cholesterol Calculated 105 mg/dL (<100); Magnesium 2.1 mg/dL (1.6-2.3); Potassium 4.8 mmol/L (3.4-5.1); Sodium 136 mmol/L (137-145); Total Protein 6.9 g/dL (6.3-8.2); Triglycerides 103 mg/dL (35-150)
[2022-01-31 13:56] LABS: Free T3, Triiodothyronine Free 3.32 pg/mL (2.77-5.27); Free T4, Direct Thyroxine 1.63 ng/dL (0.78-2.19)
[2022-01-31 14:10] LABS: Thyroid Stimulating Hormone 2.04 uIU/mL (0.47-4.68)
[2022-01-31 17:05] LABS: Creatinine Urine Random 154.8 mg/dL
[2022-01-31 17:06] LABS: Microalbumi Creatinin Ratio Ur 95.6 ug/mg CR (<30); Microalbumin Urine Random 14.8 mg/dL (0-1.6)
== END ==
PROVIDERS: PCP Nurse Practitioner; Referring Provider Nurse Practitioner; Visit Provider Nurse Practitioner
DX: E11.9 Type 2 diabetes mellitus without complications (principal); I10 Essential (primary) hypertension; R60.0 Localized edema; R42 Dizziness and giddiness; E03.9 Hypothyroidism, unspecified; N28.9 Disorder of kidney and ureter, unspecified; Z86.79 Personal history of other diseases of the circulatory system; E83.42 Hypomagnesemia
CPT/HCPCS: 36415; 80053; 80061; 82043; 82570; 83735; 84439; 84443; 84481; 85025

== ENCOUNTER → 2022-03-22 15:24 | Outpatient (CLI) | payer MEDICARE, OTHER, SELFPAY ==
[2022-03-22 17:04] LABS: INR 3.7 (0.9-1.3); Prothrombin Time 42.8 SECONDS (10.1-12.7)
== END ==
PROVIDERS: PCP Nurse Practitioner; Referring Provider Nurse Practitioner; Visit Provider Nurse Practitioner
DX: Z79.01 Long term (current) use of anticoagulants (principal)
CPT/HCPCS: 36415; 85610

== ENCOUNTER → 2022-04-02 08:34 | Outpatient (CLI) | payer MEDICARE, OTHER, SELFPAY ==
[2022-04-02 10:11] LABS: INR 3.1 (0.9-1.3); Prothrombin Time 36.2 SECONDS (10.1-12.7)
== END ==
PROVIDERS: Family Provider Nurse Practitioner; PCP Nurse Practitioner; Referring Provider Nurse Practitioner; Visit Provider Nurse Practitioner
DX: Z79.01 Long term (current) use of anticoagulants (principal); Z86.718 Personal history of other venous thrombosis and embolism; Z95.3 Presence of xenogenic heart valve
CPT/HCPCS: 36415; 85610

== ENCOUNTER → 2022-04-16 13:25 | Outpatient (CLI) | payer MEDICARE, OTHER, SELFPAY ==
[2022-04-16 14:34] LABS: INR 2.5 (0.9-1.3); Prothrombin Time 29.1 SECONDS (10.1-12.7)
== END ==
PROVIDERS: Family Provider Nurse Practitioner; PCP Nurse Practitioner; Referring Provider Nurse Practitioner; Visit Provider Nurse Practitioner
DX: Z79.01 Long term (current) use of anticoagulants (principal); Z86.718 Personal history of other venous thrombosis and embolism; Z95.3 Presence of xenogenic heart valve
CPT/HCPCS: 36415; 85610

== ENCOUNTER 2022-05-01 16:00 | Outpatient (RCR) | payer MEDICARE, OTHER, SELFPAY ==
--- NOTE | 2022-04-11 17:48 | PT.OIE ---
Current Diagnoses Benign paroxysmal vertigo, unspecified ear (04/11/22) Other peripheral vertigo, bilateral (04/11/22) Other abnormalities of gait and mobility (04/11/22) Dizziness and giddiness (04/11/22) Past Medical History (Last Reviewed 02/15/22 @ 12:59 by ELDA Kilgore) Allergies Anxiety (~2019) Chronic cough Class 3 obesity Diabetes Edema Hearing loss Heart block AV complete History of CHF (congestive heart failure) History of DVT (deep vein thrombosis) History of pacemaker Hypertension Hypothyroidism (acquired) Kidney disease Kidney stones Mumps Sleep apnea (~2007) Thyroid nodule Warfarin anticoagulation Past Surgical History (Last Reviewed 02/15/22 @ 12:59 by ELDA Kilgore) Anesthesia History of aortic valve replacement with porcine valve History of partial nephrectomy (~2016) History of partial thyroidectomy (~2017) Pacemaker (~2019) Status post aortic valve repair (~2011) Status post gender reassignment surgery (~2003) Visit Care Team Role Provider Type ELDA Kilgore Attending Provider Advanced Percussion Instrument Tuner Family Provider Primary Care Provider Referring Provider Specialty: [facility] Address: [address] [place] [address] Email: [email or web address] Physical Therapy Initial Evaluation PT-OP-A Visit Information Start: 04/11/22 14:10 Freq: Status: Active Protocol: Document 04/11/22 12:00 DCW (Rec: 04/11/22 14:13 DCW [id number]) Out-Patient Physical Therapy Visit Information Visit Information Visit Type Initial Evaluation Visit Start Time 12:00 Visit Stop Time 12:45 Total Visit Minutes 45 Visit Number 1 Number of CASCADE OPERATOR Visits 0 Evaluation Information Evaluation Date 04/11/22 PT-OP-B Current Condition Start: 04/11/22 14:10 Freq: Status: Active Protocol: Document 04/11/22 12:00 DCW (Rec: 04/11/22 14:20 DCW [id number]) Current Condition History of Current Condition Onset Date 8-9 year history Current Complaints Imbalance, mostly with head movements in standing History of Current Condition Pt is a 71 year old female complaining of a 8-9 year history of motion-induced imbalance. Pt reports episodes are fairly quick, only lasting a few seconds, but just feel like she is easily thrown to the side with any head turns. This can happen if she is standing/walking, or even when she is driving and turns her head to look at traffic. Has been moving more en bloc for the past few years to decrease symptoms. Admits she typically doesn't really turn her head when driving, just uses mirrors and blind- spot monitors. Does admit she has had some hearing loss, but it has been largely long-term , slow decline bilaterally. Has noticed also some decreased LE sensation. Notes she doesn't notice any symptoms when laying down or repositioning in bed. Treatment Goals Patient/Caregiver Goals Improve stability, decrease feelings of dizziness Personal Factors Other Personal Factors That May Effect DM II, Obesity, Hx DVT, Therapy/Recovery Pacemaker, Warfarin use, kidney disease, HTN, Aortic valve replacement, CHF PT-OP-C Subjective Start: 04/11/22 14:10 Freq: Status: Active Protocol: Document 04/11/22 12:00 DCW (Rec: 04/11/22 14:13 [facility] [id number]) OP-PT Subjective Patient Comments Patient Comments Things just kind of go bonkers when I turn my head. Patient Reported Progress Improving PT-OP-O Vestibular Start: 04/11/22 14:10 Freq: Status: Active Protocol: Document 04/11/22 12:00 DCW (Rec: 04/11/22 14:13 [facility] [id number]) Vestibular Assessment Visual Testing Smooth Pursuits Horizontal WNL Smooth Pursuits Vertical WNL Saccades Horizontal WNL Gaze Evoked Nystagmus With Fixation Negative Gaze Evoked Nystagmus Without Fixation Negative Heave Test Positive Bilateral Thrust Head Positive Bilateral Head Shake Negative Positional Testing Kristy-Hallpike Negative Left,Negative Right Rolling Test Negative Left,Negative Right PT-OP-T Assessment and Plan Start: 04/11/22 14:10 Freq: Status: Active Protocol: Document 04/11/22 12:00 DCW (Rec: 04/11/22 17:48 DCW [id number]) Physical Therapy Assessment Rehab Potential Rehabilitation Potential Fair Evaluation Complexity Number of Personal Factors/Comorbidities 3 or More Number of Body Systems Impaired 4 or More Clinical Presentation at Evaluation Unstable Impairments Impairments Balance,Functional Activities, Functional Mobility,Vestibular Goals Two Impairment Pt unable to turn her head while driving due to fear of imbalance Fpc Goal (LTG) Pt to tolerate head turns <1 Hz with no symptoms to improve ability to turn head for searching for traffic while driving. LTG Duration 06/06/22 One Impairment Pt does not have an appropriate home exercise program Short Term Goal (STG) Pt to be independent and compliant with an appropriate HEP STG Duration 05/09/22 Assessment Summary Assessment Pt presents with signs and symptoms somewhat consistent with a moderate bilateral vestibular loss. Testing largely negative, however pt has a fairly significant positive head thrust and heave test bilaterally. While bilaterally positive thrust/ heave tests can, and typically are, simply a sign of age- related vestibular loss, pt has a much longer delay prior to correction than would be expected for her age. Pt is likely at least somewhat compensated for this loss, due to her 8-9 year history, however since she admits she largely avoids any quick movements or head movements as much as possible, she is likely limiting her own recovery by avoiding habituation/adaptation movements. Difficult to determine at this point potential cause of vestibular loss. May be worsening over the last few years as she begins to lose sensation/ proprioception due to B LE neuropathy. Pt should benefit from vestibular therapy focusing on challenges involving head turns and habituation movements. If pt does not progress as expected, may benefit from referral to ENT in the future for further testing. Physical Therapy Plan Frequency and Duration Frequency of Treatment 1-2x/week Duration of treatment (weeks) 8 Plan of Care Start Date 04/11/22 Plan of Care End Date 06/06/22 Therapeutic Interventions Therapeutic Interventions Balance Training,Coordination Training,Home Exercise Program ,Manual Therapy,Neuromuscular Re-education,Patient/Caregiver Education,Self-Care/Home Management,Therapeutic Exercises,Vestibular Rehabilitation Next Visit Focus/Plan Next Note Type Treatment Note Next Visit Plan Vestibular rehabilitation, balance training, NMR
--- NOTE | 2022-04-11 17:49 | PT.OPPOC ---
Physical, Occupational & Speech Therapy At [facility] Current Diagnoses Benign paroxysmal vertigo, unspecified ear (04/11/22) Other peripheral vertigo, bilateral (04/11/22) Other abnormalities of gait and mobility (04/11/22) Dizziness and giddiness (04/11/22) Visit Care Team Role Provider Type ELDA Kilgore Attending Provider Advanced Information Systems Coordinator Family Provider Primary Care Provider Referring Provider Specialty: Family Practice Address: [address] [place] [address], [facility] Email: [email or web address] Plan Of Care PT-OP-T Assessment and Plan Start: 04/11/22 14:10 Freq: Status: Active Protocol: Document 04/11/22 12:00 DCW (Rec: 04/11/22 17:48 DCW [id number]) Physical Therapy Assessment Rehab Potential Rehabilitation Potential Fair Evaluation Complexity Number of Personal Factors/Comorbidities 3 or More Number of Body Systems Impaired 4 or More Clinical Presentation at Evaluation Unstable Impairments Impairments Balance,Functional Activities, Functional Mobility,Vestibular Goals Two Impairment Pt unable to turn her head while driving due to fear of imbalance Candy Counter Clerk Goal (LTG) Pt to tolerate head turns <1 Hz with no symptoms to improve ability to turn head for searching for traffic while driving. LTG Duration 06/06/22 One Impairment Pt does not have an appropriate home exercise program Short Term Goal (STG) Pt to be independent and compliant with an appropriate HEP STG Duration 05/09/22 Assessment Summary Assessment Pt presents with signs and symptoms somewhat consistent with a moderate bilateral vestibular loss. Testing largely negative, however pt has a fairly significant positive head thrust and heave test bilaterally. While bilaterally positive thrust/ heave tests can, and typically are, simply a sign of age- related vestibular loss, pt has a much longer delay prior to correction than would be expected for her age. Pt is likely at least somewhat compensated for this loss, due to her 8-9 year history, however since she admits she largely avoids any quick movements or head movements as much as possible, she is likely limiting her own recovery by avoiding habituation/adaptation movements. Difficult to determine at this point potential cause of vestibular loss. May be worsening over the last few years as she begins to lose sensation/ proprioception due to B LE neuropathy. Pt should benefit from vestibular therapy focusing on challenges involving head turns and habituation movements. If pt does not progress as expected, may benefit from referral to ENT in the future for further testing. Physical Therapy Plan Frequency and Duration Frequency of Treatment 1-2x/week Duration of treatment (weeks) 8 Plan of Care Start Date 04/11/22 Plan of Care End Date 06/06/22 Therapeutic Interventions Therapeutic Interventions Balance Training,Coordination Training,Home Exercise Program ,Manual Therapy,Neuromuscular Re-education,Patient/Caregiver Education,Self-Care/Home Management,Therapeutic Exercises,Vestibular Rehabilitation Next Visit Focus/Plan Next Note Type Treatment Note Next Visit Plan Vestibular rehabilitation, balance training, NMR Plan of Care Dates Plan of Care Start Date 04/11/22 Plan of Care End Date 06/06/22 Electronically Signed by: Chase Salazar, PT 04/11/22 2704 If you are in agreement with this Plan of Care, please return a signed and dated copy. I have reviewed this Plan of Care and certify that the skilled therapy services above are required to meet the patient?s needs. Physician Signature Date Printed Name and Credentials Clinical Instructor Signature Printed Name and Credentials
--- NOTE | 2022-04-13 12:47 | PT.OTN ---
Current Diagnoses Benign paroxysmal vertigo, unspecified ear (04/13/22) Other peripheral vertigo, bilateral (04/13/22) Other abnormalities of gait and mobility (04/13/22) Dizziness and giddiness (04/13/22) Physical Therapy Treatment Note PT-OP-A Visit Information Start: 04/11/22 14:10 Freq: Status: Active Protocol: Document 04/13/22 12:00 DCW (Rec: 04/13/22 12:47 DCW [id number]) Out-Patient Physical Therapy Visit Information Visit Information Visit Type Treatment Note Visit Start Time 12:00 Visit Stop Time 12:45 Total Visit Minutes 45 Visit Number 2 Number of WRECKING CAR DRIVER Visits 0 Evaluation Information Evaluation Date 04/11/22 PT-OP-B Current Condition Start: 04/11/22 14:10 Freq: Status: Active Protocol: Document 04/11/22 12:00 DCW (Rec: 04/11/22 14:20 DCW [id number]) Current Condition History of Current Condition Onset Date 8-9 year history Current Complaints Imbalance, mostly with head movements in standing History of Current Condition Pt is a 71 year old female complaining of a 8-9 year history of motion-induced imbalance. Pt reports episodes are fairly quick, only lasting a few seconds, but just feel like she is easily thrown to the side with any head turns. This can happen if she is standing/walking, or even when she is driving and turns her head to look at traffic. Has been moving more en bloc for the past few years to decrease symptoms. Admits she typically doesn't really turn her head when driving, just uses mirrors and blind- spot monitors. Does admit she has had some hearing loss, but it has been largely long-term , slow decline bilaterally. Has noticed also some decreased LE sensation. Notes she doesn't notice any symptoms when laying down or repositioning in bed. Treatment Goals Patient/Caregiver Goals Improve stability, decrease feelings of dizziness Personal Factors Other Personal Factors That May Effect DM II, Obesity, Hx DVT, Therapy/Recovery Pacemaker, Warfarin use, kidney disease, HTN, Aortic valve replacement, CHF PT-OP-C Subjective Start: 04/11/22 14:10 Freq: Status: Active Protocol: Document 04/13/22 12:00 DCW (Rec: 04/13/22 12:47 DCW [id number]) OP-PT Subjective Patient Comments Patient Comments It's about as good as it gets . PT-OP-O Vestibular Start: 04/11/22 14:10 Freq: Status: Active Protocol: Document 04/11/22 12:00 [facility] (Rec: 04/11/22 14:13 [facility] [id number]) Vestibular Assessment Visual Testing Smooth Pursuits Horizontal WNL Smooth Pursuits Vertical WNL Saccades Horizontal WNL Gaze Evoked Nystagmus With Fixation Negative Gaze Evoked Nystagmus Without Fixation Negative Heave Test Positive Bilateral Thrust Head Positive Bilateral Head Shake Negative Positional Testing Ben Wheeler-Hallpike Negative Left,Negative Right Rolling Test Negative Left,Negative Right PT-OP-Q Treatments Start: 04/11/22 14:10 Freq: Status: Active Protocol: Document 04/13/22 12:00 DC (Rec: 04/13/22 12:47 [facility] [id number]) Neuro Re-Education Treatment Balance Activities Staggered Stance Surface Blue foam Comments EO/EC Ambulation /c Head turns Details Horizontal/Vertical Head Turns Comments 90 bpm [place] and Turn Details Three-step bow and head turn Vestibular Rehabilitation Corrective Saccades Details Eyes, then head Distance From Target Arm length Speed as tolerted Position Seated Comments HEP X2 Details Target and Head in opposite directions Distance From Target Arm length Speed as tolerated Position Seated Comments HEP X1 Details Static target, moving head Distance From Target Arm length Speed as tolerated Position Seated Comments HEP VOR Retraining Details Head and target move together Distance From Target Arm length Speed as tolerated Position Seated Comments HEP PT-OP-T Assessment and Plan Start: 04/11/22 14:10 Freq: Status: Active Protocol: Document 04/13/22 12:00 [facility] (Rec: 04/13/22 12:47 [facility] [id number]) Physical Therapy Assessment Impairments Impairments Balance,Functional Activities, Functional Mobility,Vestibular Goals Two Impairment Pt unable to turn her head while driving due to fear of imbalance Labels Molder Goal (LTG) Pt to tolerate head turns <1 Hz with no symptoms to improve ability to turn head for searching for traffic while driving. LTG Duration 06/06/22 One Impairment Pt does not have an appropriate home exercise program Short Term Goal (STG) Pt to be independent and compliant with an appropriate HEP STG Duration 05/09/22 Assessment Summary Assessment Pt frustrated with the areas of difficulty she was noticing with her activities today, especially with head turns on foam surfaces. Motivated to practice HEP this weekend. Physical Therapy Plan Frequency and Duration Frequency of Treatment 1-2x/week Duration of treatment (weeks) 8 Plan of Care Start Date 04/11/22 Plan of Care End Date 06/06/22 Therapeutic Interventions Therapeutic Interventions Balance Training,Coordination Training,Home Exercise Program ,Manual Therapy,Neuromuscular Re-education,Patient/Caregiver Education,Self-Care/Home Management,Therapeutic Exercises,Vestibular Rehabilitation Next Visit Focus/Plan Next Note Type Treatment Note Next Visit Plan Vestibular rehabilitation, balance training, NMR
--- NOTE | 2022-04-17 16:43 | PT.OTN ---
Current Diagnoses Benign paroxysmal vertigo, unspecified ear (04/17/22) Other peripheral vertigo, bilateral (04/17/22) Other abnormalities of gait and mobility (04/17/22) Dizziness and giddiness (04/17/22) Physical Therapy Treatment Note PT-OP-A Visit Information Start: 04/11/22 14:10 Freq: Status: Active Protocol: Document 04/17/22 16:00 DCW (Rec: 04/17/22 16:42 DCW [id number]) Out-Patient Physical Therapy Visit Information Visit Information Visit Type Treatment Note Visit Start Time 16:00 Visit Stop Time 16:45 Total Visit Minutes 45 Visit Number 3 Number of DOUGH RAISER Visits 0 Evaluation Information Evaluation Date 04/11/22 PT-OP-B Current Condition Start: 04/11/22 14:10 Freq: Status: Active Protocol: Document 04/11/22 12:00 DCW (Rec: 04/11/22 14:20 DCW [id number]) Current Condition History of Current Condition Onset Date 8-9 year history Current Complaints Imbalance, mostly with head movements in standing History of Current Condition Pt is a 71 year old female complaining of a 8-9 year history of motion-induced imbalance. Pt reports episodes are fairly quick, only lasting a few seconds, but just feel like she is easily thrown to the side with any head turns. This can happen if she is standing/walking, or even when she is driving and turns her head to look at traffic. Has been moving more en bloc for the past few years to decrease symptoms. Admits she typically doesn't really turn her head when driving, just uses mirrors and blind- spot monitors. Does admit she has had some hearing loss, but it has been largely long-term , slow decline bilaterally. Has noticed also some decreased LE sensation. Notes she doesn't notice any symptoms when laying down or repositioning in bed. Treatment Goals Patient/Caregiver Goals Improve stability, decrease feelings of dizziness Personal Factors Other Personal Factors That May Effect DM II, Obesity, Hx DVT, Therapy/Recovery Pacemaker, Warfarin use, kidney disease, HTN, Aortic valve replacement, CHF PT-OP-C Subjective Start: 04/11/22 14:10 Freq: Status: Active Protocol: Document 04/17/22 16:00 DCW (Rec: 04/17/22 16:42 DCW [id number]) OP-PT Subjective Patient Comments Patient Comments Pt reports that she is not too bad today. PT-OP-O Vestibular Start: 04/11/22 14:10 Freq: Status: Active Protocol: Document 04/11/22 12:00 DCW (Rec: 04/11/22 14:13 AZW [id number]) Vestibular Assessment Visual Testing Smooth Pursuits Horizontal WNL Smooth Pursuits Vertical WNL Saccades Horizontal WNL Gaze Evoked Nystagmus With Fixation Negative Gaze Evoked Nystagmus Without Fixation Negative Heave Test Positive Bilateral Thrust Head Positive Bilateral Head Shake Negative Positional Testing Kristy-Hallpike Negative Left,Negative Right Rolling Test Negative Left,Negative Right PT-OP-Q Treatments Start: 04/11/22 14:10 Freq: Status: Active Protocol: Document 04/17/22 16:00 DCW (Rec: 04/17/22 16:42 [facility] [id number]) Gym Equipment Shuttle Balance Red Details WBOS, Staggered Neuro Re-Education Treatment Balance Activities SLS Details SLS Foam Details Foam stepping stones Comments Added hurdles Tandem Stance Details Head Turns Comments Attempted tandem, stuck with small step Staggered Stance Surface Blue foam Comments EO/EC Ambulation /c Head turns Details Horizontal/Vertical Head Turns Comments 90 bpm [place] and Turn Details Three-step bow and head turn Vestibular Rehabilitation Corrective Saccades Details Eyes, then head Distance From Target Arm length Speed as tolerted Position Seated Comments HEP PT-OP-T Assessment and Plan Start: 04/11/22 14:10 Freq: Status: Active Protocol: Document 04/17/22 16:00 DCW (Rec: 04/17/22 16:42 [facility] [id number]) Physical Therapy Assessment Impairments Impairments Balance,Functional Activities, Functional Mobility,Vestibular Goals Two Impairment Pt unable to turn her head while driving due to fear of imbalance Skilled Nursing Goal (LTG) Pt to tolerate head turns <1 Hz with no symptoms to improve ability to turn head for searching for traffic while driving. LTG Duration 06/06/22 One Impairment Pt does not have an appropriate home exercise program Short Term Goal (STG) Pt to be independent and compliant with an appropriate HEP STG Duration 05/09/22 Assessment Summary Assessment Pt performed much better today , but noticeably fatigued with nearly all balance challenges . Did fairly well for first time on shuttle balance, reviewed corrective saccade portion of HEP due to pt questions. Physical Therapy Plan Frequency and Duration Frequency of Treatment 1-2x/week Duration of treatment (weeks) 8 Plan of Care Start Date 04/11/22 Plan of Care End Date 06/06/22 Therapeutic Interventions Therapeutic Interventions Balance Training,Coordination Training,Home Exercise Program ,Manual Therapy,Neuromuscular Re-education,Patient/Caregiver Education,Self-Care/Home Management,Therapeutic Exercises,Vestibular Rehabilitation Next Visit Focus/Plan Next Note Type Treatment Note Next Visit Plan Vestibular rehabilitation, balance training, NMR
--- NOTE | 2022-04-20 11:58 | PT.OTN ---
Current Diagnoses Benign paroxysmal vertigo, unspecified ear (04/20/22) Other peripheral vertigo, bilateral (04/20/22) Other abnormalities of gait and mobility (04/20/22) Dizziness and giddiness (04/20/22) Physical Therapy Treatment Note PT-OP-A Visit Information Start: 04/11/22 14:10 Freq: Status: Active Protocol: Document 04/20/22 11:15 DCW (Rec: 04/20/22 11:58 DCW [id number]) Out-Patient Physical Therapy Visit Information Visit Information Visit Type Treatment Note Visit Start Time 11:15 Visit Stop Time 12:00 Total Visit Minutes 45 Visit Number 4 Number of STORE FACILITY TECHNICIAN Visits 0 Evaluation Information Evaluation Date 04/11/22 PT-OP-B Current Condition Start: 04/11/22 14:10 Freq: Status: Active Protocol: Document 04/11/22 12:00 DCW (Rec: 04/11/22 14:20 DCW [id number]) Current Condition History of Current Condition Onset Date 8-9 year history Current Complaints Imbalance, mostly with head movements in standing History of Current Condition Pt is a 71 year old female complaining of a 8-9 year history of motion-induced imbalance. Pt reports episodes are fairly quick, only lasting a few seconds, but just feel like she is easily thrown to the side with any head turns. This can happen if she is standing/walking, or even when she is driving and turns her head to look at traffic. Has been moving more en bloc for the past few years to decrease symptoms. Admits she typically doesn't really turn her head when driving, just uses mirrors and blind- spot monitors. Does admit she has had some hearing loss, but it has been largely long-term , slow decline bilaterally. Has noticed also some decreased LE sensation. Notes she doesn't notice any symptoms when laying down or repositioning in bed. Treatment Goals Patient/Caregiver Goals Improve stability, decrease feelings of dizziness Personal Factors Other Personal Factors That May Effect DM II, Obesity, Hx DVT, Therapy/Recovery Pacemaker, Warfarin use, kidney disease, HTN, Aortic valve replacement, CHF PT-OP-C Subjective Start: 04/11/22 14:10 Freq: Status: Active Protocol: Document 04/20/22 11:15 DCW (Rec: 04/20/22 11:58 DCW [id number]) OP-PT Subjective Patient Comments Patient Comments I haven't really analyzed how things are feeling, I've been too busy. PT-OP-O Vestibular Start: 04/11/22 14:10 Freq: Status: Active Protocol: Document 04/11/22 12:00 DCW (Rec: 04/11/22 14:13 DCW [id number]) Vestibular Assessment Visual Testing Smooth Pursuits Horizontal WNL Smooth Pursuits Vertical WNL Saccades Horizontal WNL Gaze Evoked Nystagmus With Fixation Negative Gaze Evoked Nystagmus Without Fixation Negative Heave Test Positive Bilateral Thrust Head Positive Bilateral Head Shake Negative Positional Testing [place]-Hallpike Negative Left,Negative Right Rolling Test Negative Left,Negative Right PT-OP-Q Treatments Start: 04/11/22 14:10 Freq: Status: Active Protocol: Document 04/20/22 11:15 DCW (Rec: 04/20/22 11:58 DCW [id number]) Gym Equipment Shuttle Balance Red Details WBOS, Staggered Neuro Re-Education Treatment Balance Activities SLS Details SLS Foam Details Hurdles/foam Comments Fwd/Side-stepping Tandem Stance Details X1 Comments Attempted tandem, stuck with small step Ambulation /c Head turns Details Horizontal/Vertical Head Turns Comments 100 bpm PT-OP-T Assessment and Plan Start: 04/11/22 14:10 Freq: Status: Active Protocol: Document 04/20/22 11:15 DCW (Rec: 04/20/22 11:58 DCW [id number]) Physical Therapy Assessment Impairments Impairments Balance,Functional Activities, Functional Mobility,Vestibular Goals Two Impairment Pt unable to turn her head while driving due to fear of imbalance Porcelain Mixer Goal (LTG) Pt to tolerate head turns <1 Hz with no symptoms to improve ability to turn head for searching for traffic while driving. LTG Duration 06/06/22 One Impairment Pt does not have an appropriate home exercise program Short Term Goal (STG) Pt to be independent and compliant with an appropriate HEP STG Duration 05/09/22 Assessment Summary Assessment Pt limited more today with activity tolerance than anything else, multiple rest breaks required in the middle of most activities. Physical Therapy Plan Frequency and Duration Frequency of Treatment 1-2x/week Duration of treatment (weeks) 8 Plan of Care Start Date 04/11/22 Plan of Care End Date 06/06/22 Therapeutic Interventions Therapeutic Interventions Balance Training,Coordination Training,Home Exercise Program ,Manual Therapy,Neuromuscular Re-education,Patient/Caregiver Education,Self-Care/Home Management,Therapeutic Exercises,Vestibular Rehabilitation Next Visit Focus/Plan Next Note Type Treatment Note Next Visit Plan Vestibular rehabilitation, balance training, NMR
--- NOTE | 2022-05-01 16:43 | PT.OTN ---
Current Diagnoses Benign paroxysmal vertigo, unspecified ear (05/01/22) Other peripheral vertigo, bilateral (05/01/22) Other abnormalities of gait and mobility (05/01/22) Dizziness and giddiness (05/01/22) Physical Therapy Treatment Note PT-OP-A Visit Information Start: 04/11/22 14:10 Freq: Status: Active Protocol: Document 05/01/22 16:00 DCW (Rec: 05/01/22 16:43 DCW [id number]) Out-Patient Physical Therapy Visit Information Visit Information Visit Type Discharge Summary Visit Start Time 16:00 Visit Stop Time 16:40 Total Visit Minutes 40 Visit Number 5 Number of DIRECTOR OF PHYSIOTHERAPY SERVICES Visits 0 Evaluation Information Evaluation Date 04/11/22 PT-OP-B Current Condition Start: 04/11/22 14:10 Freq: Status: Active Protocol: Document 04/11/22 12:00 DCW (Rec: 04/11/22 14:20 DCW [id number]) Current Condition History of Current Condition Onset Date 8-9 year history Current Complaints Imbalance, mostly with head movements in standing History of Current Condition Pt is a 71 year old female complaining of a 8-9 year history of motion-induced imbalance. Pt reports episodes are fairly quick, only lasting a few seconds, but just feel like she is easily thrown to the side with any head turns. This can happen if she is standing/walking, or even when she is driving and turns her head to look at traffic. Has been moving more en bloc for the past few years to decrease symptoms. Admits she typically doesn't really turn her head when driving, just uses mirrors and blind- spot monitors. Does admit she has had some hearing loss, but it has been largely long-term , slow decline bilaterally. Has noticed also some decreased LE sensation. Notes she doesn't notice any symptoms when laying down or repositioning in bed. Treatment Goals Patient/Caregiver Goals Improve stability, decrease feelings of dizziness Personal Factors Other Personal Factors That May Effect DM II, Obesity, Hx DVT, Therapy/Recovery Pacemaker, Warfarin use, kidney disease, HTN, Aortic valve replacement, CHF PT-OP-C Subjective Start: 04/11/22 14:10 Freq: Status: Active Protocol: Document 05/01/22 16:00 DCW (Rec: 05/01/22 16:43 DCW [id number]) OP-PT Subjective Patient Comments Patient Comments I haven't had much off balance stuff other than a fairly brief moment about once a day, which isn't too bad, actually. PT-OP-O Vestibular Start: 04/11/22 14:10 Freq: Status: Active Protocol: Document 04/11/22 12:00 DCW (Rec: 04/11/22 14:13 DCW [id number]) Vestibular Assessment Visual Testing Smooth Pursuits Horizontal WNL Smooth Pursuits Vertical WNL Saccades Horizontal WNL Gaze Evoked Nystagmus With Fixation Negative Gaze Evoked Nystagmus Without Fixation Negative Heave Test Positive Bilateral Thrust Head Positive Bilateral Head Shake Negative Positional Testing Bruce-Hallpike Negative Left,Negative Right Rolling Test Negative Left,Negative Right PT-OP-Q Treatments Start: 04/11/22 14:10 Freq: Status: Active Protocol: Document 05/01/22 16:00 DCW (Rec: 05/01/22 16:43 DCW [id number]) Gym Equipment Shuttle Balance Red Details WBOS, Staggered, lateral weight shift Neuro Re-Education Treatment Balance Activities Ambulation /c Head turns Details Horizontal/Vertical Head Turns Comments 120 bpm Self-Care/Home Management Treatment Education Other Education Discussed importance of relying on self motivation to perform HEP, continued importance of not avoiding vestibular challenges PT-OP-T Assessment and Plan Start: 04/11/22 14:10 Freq: Status: Active Protocol: Document 05/01/22 16:00 DCW (Rec: 05/01/22 16:43 DCW [id number]) Physical Therapy Assessment Impairments Impairments Balance,Functional Activities, Functional Mobility,Vestibular Goals Two Impairment Pt unable to turn her head while driving due to fear of imbalance Usp Goal (LTG) Pt to tolerate head turns <1 Hz with no symptoms to improve ability to turn head for searching for traffic while driving. LTG Duration Met One Impairment Pt does not have an appropriate home exercise program Short Term Goal (STG) Pt to be independent and compliant with an appropriate HEP STG Duration Met Progress Towards Goals Progress Towards Goals Goals Met Assessment Summary Assessment Pt feeling more comfortable with HEP recently, admits that if there's one thing I've learned, it's that I can't avoid the stuff that makes me feel a little off. Pt shows good understanding of HEP, feels ready to discharge to independent HEP. Pt will be discharged at this time, understands she will need a new referral in order to return to skilled therapy for any reason. Physical Therapy Plan Frequency and Duration Frequency of Treatment 1-2x/week Duration of treatment (weeks) 8 Plan of Care Start Date 04/11/22 Plan of Care End Date 06/06/22 Therapeutic Interventions Therapeutic Interventions Balance Training,Coordination Training,Home Exercise Program ,Manual Therapy,Neuromuscular Re-education,Patient/Caregiver Education,Self-Care/Home Management,Therapeutic Exercises,Vestibular Rehabilitation Discharge Physical Therapy Discharge Reasons Goals Met Next Visit Focus/Plan Next Note Type Discharge Summary
== END 2022-05-07 11:53 | disposition home or self-care (01) ==
LOC: PHYS 16:00
PROVIDERS: Family Provider Nurse Practitioner; PCP Nurse Practitioner; Referring Provider Nurse Practitioner; Visit Provider Nurse Practitioner
DX: R26.89 Other abnormalities of gait and mobility (principal); H81.10 Benign paroxysmal vertigo, unspecified ear; H81.393 Other peripheral vertigo, bilateral
CPT/HCPCS: 97112; 97163; 97535

== ENCOUNTER → 2022-05-07 09:55 | Outpatient (CLI) | payer MEDICARE, OTHER, SELFPAY ==
[2022-05-07 11:32] LABS: Hematocrit 37.4 % (36-46); Hemoglobin 12.6 g/dL (12.0-16.0)
[2022-05-07 11:41] LABS: INR 2.8 (0.9-1.3)
[2022-05-07 11:46] LABS: Hemoglobin A1C% w Est Avg Glu 5.9 % (4.0-6.0)
[2022-05-07 11:53] LABS: Alanine Aminotransferase 22 IU/L (<35); Albumin 3.9 g/dL (3.5-5.0); Alkaline Phosphatase 55 U/L (38-126); Aspartate Aminotransferase 22 IU/L (14-36); BUN Creatinine Ratio 11.9 (6-22); Bilirubin Total 0.5 mg/dL (0.2-1.3); Blood Urea Nitrogen 20 mg/dL (7-17); Calcium 8.6 mg/dL (8.4-10.2); Carbon Dioxide 24 mmol/L (22-32); Chloride 103 mmol/L (98-107); Cholesterol 204 mg/dL (140-199); Estimated Glomerular Filt Rate 33 mL/min (>60); Globulin 3.8 g/dL (1.7-4.1); Glucose 135 mg/dL (80-110); HDL Cholesterol 55 mg/dL (40-60); HEMOLYSIS < 15 (0-50); LDL Cholesterol Calculated 131 mg/dL (<100); Potassium 4.2 mmol/L (3.4-5.1); Sodium 136 mmol/L (137-145); Total Protein 7.7 g/dL (6.3-8.2); Triglycerides 91 mg/dL (35-150)
[2022-05-07 11:54] LABS: Blood Urea Nitrogen 20 mg/dL (7-17); Calcium 8.7 mg/dL (8.4-10.2); Carbon Dioxide 24 mmol/L (22-32); Chloride 103 mmol/L (98-107); Estimated Glomerular Filt Rate 33 mL/min (>60); Glucose 135 mg/dL (80-110); HEMOLYSIS < 15 (0-50); Potassium 4.2 mmol/L (3.4-5.1); Sodium 136 mmol/L (137-145)
[2022-05-07 12:15] LABS: Free T3, Triiodothyronine Free 3.31 pg/mL (2.77-5.27); Free T4, Direct Thyroxine 1.82 ng/dL (0.78-2.19)
[2022-05-07 12:29] LABS: Thyroid Stimulating Hormone 1.63 uIU/mL (0.47-4.68)
[2022-05-07 15:02] LABS: Creatinine Urine Random 51.6 mg/dL
[2022-05-07 15:05] LABS: Microalbumi Creatinin Ratio Ur 40.6 ug/mg CR (<30); Microalbumin Urine Random 2.1 mg/dL (0-1.6)
[2022-05-09 06:36] LABS: Parathyroid Hormone Int 60 pg/mL (15-65)
== END ==
PROVIDERS: Family Provider Nurse Practitioner; PCP Nurse Practitioner; Referring Provider Student in an Organized Health Care Education/Training Program; Visit Provider Student in an Organized Health Care Education/Training Program
DX: N05.9 Unspecified nephritic syndrome with unspecified morphologic changes (principal); E11.29 Type 2 diabetes mellitus with other diabetic kidney complication; I10 Essential (primary) hypertension; D64.9 Anemia, unspecified; R80.9 Proteinuria, unspecified; N25.81 Secondary hyperparathyroidism of renal origin; E03.9 Hypothyroidism, unspecified; F41.9 Anxiety disorder, unspecified; N28.9 Disorder of kidney and ureter, unspecified; Z79.899 Other long term (current) drug therapy; Z79.01 Long term (current) use of anticoagulants; Z86.718 Personal history of other venous thrombosis and embolism; Z95.3 Presence of xenogenic heart valve
CPT/HCPCS: 36415; 80048; 80053; 80061; 82043; 82570; 83036; 83970; 84439; 84443; 84481; 85014; 85018; 85610

== ENCOUNTER → 2022-07-24 14:52 | Outpatient (CLI) | payer MEDICARE, OTHER, SELFPAY ==
[2022-07-24 16:01] LABS: Hemoglobin A1C% w Est Avg Glu 5.8 % (4.0-6.0)
[2022-07-24 16:22] LABS: Alanine Aminotransferase 28 IU/L (<35); Alkaline Phosphatase 63 U/L (38-126); Aspartate Aminotransferase 27 IU/L (14-36); BUN Creatinine Ratio 10.2 (6-22); Bilirubin Total 0.6 mg/dL (0.2-1.3); Blood Urea Nitrogen 19 mg/dL (7-17); Calcium 9.1 mg/dL (8.4-10.2); Carbon Dioxide 25 mmol/L (22-32); Chloride 100 mmol/L (98-107); Cholesterol 212 mg/dL (140-199); Estimated Glomerular Filt Rate 29 mL/min (>60); Glucose 110 mg/dL (80-110); HDL Cholesterol 49 mg/dL (40-60); HEMOLYSIS < 15 (0-50); LDL Cholesterol Calculated 132 mg/dL (<100); Potassium 4.1 mmol/L (3.4-5.1); Sodium 136 mmol/L (137-145); Total Protein 8.1 g/dL (6.3-8.2); Triglycerides 153 mg/dL (35-150)
[2022-07-24 16:47] LABS: Prothrombin Time 61.1 SECONDS (10.1-12.7)
[2022-07-24 17:28] LABS: INR 5.2 (0.9-1.3)
[2022-07-27 14:38] LABS: Creatinine Urine Random 64.6 mg/dL
[2022-07-27 14:47] LABS: Microalbumin Urine Random 6.4 mg/dL (0-1.6)
[2022-07-27 16:10] LABS: Albumin 4.1 g/dL (3.5-5.0)
== END ==
PROVIDERS: Family Provider Nurse Practitioner; PCP Nurse Practitioner; Referring Provider Nurse Practitioner; Visit Provider Nurse Practitioner
DX: I10 Essential (primary) hypertension (principal); Z79.01 Long term (current) use of anticoagulants; E11.29 Type 2 diabetes mellitus with other diabetic kidney complication; Z86.718 Personal history of other venous thrombosis and embolism; Z95.3 Presence of xenogenic heart valve
CPT/HCPCS: 80053; 80061; 82043; 82570; 83036; 85610

== ENCOUNTER → 2022-07-27 09:04 | Outpatient (CLI) | payer MEDICARE, OTHER, SELFPAY ==
[2022-07-27 10:24] LABS: INR 2.8 (0.9-1.3); Prothrombin Time 32.9 SECONDS (10.1-12.7)
== END ==
PROVIDERS: Family Provider Nurse Practitioner; PCP Nurse Practitioner; Referring Provider Nurse Practitioner; Visit Provider Nurse Practitioner
DX: Z79.01 Long term (current) use of anticoagulants (principal); Z86.718 Personal history of other venous thrombosis and embolism; Z95.3 Presence of xenogenic heart valve
CPT/HCPCS: 36415; 85610

== ENCOUNTER → 2022-09-06 07:53 | Outpatient (CLI) | payer MEDICARE, OTHER, SELFPAY ==
--- NOTE | 2022-09-06 | DI.ECHO.S_ITS ---
[facility]---------+ [facility] +---------+ : : [address] : : : : [id number] : : : : Phone: [phone]+ Echocardiogram Report + + :Name: BILL KELLY Study Date: 09/06/2022 Height: 74 in : [id number]: Weight: 380 lb : : BSA: 2.9 m2 : :: 1950 Age: 71 yrs BP: 169/85 mmHg: :Reason For Study: Shortness of breath : :Ordering Physician: Lucas : :Bailey [place] Performed By: Loreta Da Silva : :Referring: LUCAS SPAIN : + + Interpretation Summary Technically difficult study. The left ventricle is grossly normal size. The ejection fraction is estimated to be 50-55%. No significant change from the previous study. The right ventricle is moderately dilated. The right ventricular systolic function is normal. There appears to be mild restriction of mitral leaflets. The mean gradient across mitral valve about 5.6 mmHg. Suspect at least mild mitral stenosis. Not critical. There is mild mitral regurgitation. Associated mild mitral regurgitation however it was not well evaluated from all the views. Evaluation of regurgitation is inadequate. The prosthetic aortic valve is well-seated. The peak aortic velocity 1.74 m/s and mean gradient 9.0 mmHg. In January 2021 it was 2.42 m/s. The tricuspid valve is not well visualized, but is grossly normal. There is mild to moderate tricuspid regurgitation. Compared to the prior echo exam, there has been an increase in TR severity. Right ventricular systolic pressure is estimated to be 35.5 mmHg plus the clinically estimated CVP which cannot be estimated on this exam. Procedure: A two-dimensional transthoracic echocardiogram with color flow and Doppler was performed. The study quality was technically difficult. A contrast injection of Definity was performed to improve assessment of LV function. Rhythm not clear. Left Ventricle: There is mild concentric left ventricular hypertrophy. The left ventricle is grossly normal size. There is no thrombus. The ejection fraction is estimated to be 50-55%. Septal motion is consistent with conduction abnormality. Diastolic function could not be accurately assessed due to contradictory data. Right Ventricle: The right ventricle is moderately dilated. The right ventricular systolic function is normal. Atria: Not measured. The right atrium is moderately dilated. The interatrial septum grossly appears intact with no obvious evidence for an atrial septal defect. Mitral Valve: The mitral valve leaflets appear mildly thickened, but open well. The mitral valve leaflets are mildly calcified. There appears to be mild restriction of mitral leaflets. The mean gradient across mitral valve about 5.6 mmHg. Suspect at least mild mitral stenosis. Not critical. There is mild mitral regurgitation. Evaluation of regurgitation is inadequate. Aortic Valve: There is a bioprosthetic aortic valve. The prosthetic aortic valve is well-seated. The prosthetic aortic valve is not well visualized. The peak aortic velocity 1.74 m/s and mean gradient 9.0 mmHg. In January 2021 it was 2.42 m/s. There is trace aortic regurgitation. Tricuspid Valve: The tricuspid valve is not well visualized, but is grossly normal. There is mild to moderate tricuspid regurgitation. Compared to the prior echo exam, there has been an increase in TR severity. Right ventricular systolic pressure is estimated to be 35.5 mmHg plus the clinically estimated CVP which cannot be estimated on this exam. Pulmonic Valve: The pulmonic valve is not well visualized. There is a trace or physiologic amount of pulmonic regurgitation. Great Vessels: The ascending aorta is normal in size. IVC was not well visualized. However it appears to be dilated. Pericardium/ Pleura There is no pericardial effusion. There is an anterior echo-free space consistent with a fat pad. There is no pleural effusion. MMode/2D Measurements & Calculations LVIDd: 5.5 cm LVOT diam: 2.4 cm LVIDs: 3.7 cm asc Aorta Diam: 3.4 cm FS: 31.3 % EPSS: 0.97 cm IVSd: 1.2 cm LVPWd: 1.1 cm LV cummings. diameter/BSA (cm/m^2): 1.9 LV sys. diameter/BSA (cm/m^2): 1.3 RA long axis: 5.4 cm RVD1 (basal): 5.1 cm RA area: 27.7 cm2 TAPSE: 1.9 cm RA vol: 120.7 ml RA : 42.3 ml/m2 IVC diam: 2.2 cm Doppler Measurements & Calculations Ao V2 max: 174.5 cm/sec LVOT Max Kamaljit: 139.3 cm/sec Ao V2 mean: 148.4 cm/sec LV V1 max P.8 mmHg Ao max P.2 mmHg LV V1 VTI: 34.0 cm Ao mean P.0 mmHg VALENTIN(I,D): 3.6 cm2 Ao V2 VTI: 41.2 cm VALENTIN(V,D): 3.5 cm2 sev ratio: 0.82 VALENTIN indexed to BSA (cm^2/m^2): 1.3 MV E max kamaljit: 169.2 cm/sec TR max kamaljit: 297.7 cm/sec MV A max kamaljit: 34.6 cm/sec TR max P.5 mmHg MV E/A: 4.9 MV dec time: 0.33 sec MVA(VTI): 3.5 cm2 MV V2 mean: 106.5 cm/sec SV(LVOT): 148.2 ml MV mean P.6 mmHg MV V2 VTI: 42.5 cm Reading Physician:04:10 PM
== END ==
PROVIDERS: Family Provider Nurse Practitioner; PCP Nurse Practitioner; Referring Provider Internal Medicine Cardiovascular Disease; Visit Provider Internal Medicine Cardiovascular Disease
DX: I08.1 Rheumatic disorders of both mitral and tricuspid valves (principal); R06.02 Shortness of breath
CPT/HCPCS: 93306; Q9957

== ENCOUNTER → 2022-10-16 11:17 | Outpatient (CLI) | payer MEDICARE, OTHER, SELFPAY ==
[2022-10-16 12:42] LABS: Add Manual Diff / Slide Review NO; Basophils Absolute Auto 100 /uL (0-100); Basophils Percent Auto 0.9 % (0-2); Eosinophils Absolute Auto 200 /uL (0-450); Eosinophils Percent Auto 2.8 % (2-4); Hemoglobin 13.2 g/dL (12.0-16.0); Lymphocytes Absolute Auto 1100 /uL (1100-4500); Mean Corpuscular HGB Conc 33.9 % (30-36); Mean Corpuscular Hemoglobin 29.8 PG (26-34); Mean Corpuscular Volume 87.9 fL (80-100); Monocytes Absolute Auto 700 /uL (0-900); Monocytes Percent Auto 9.6 % (3-14); Neutrophils Absolute Auto 5300 /uL (1500-7000); Neutrophils Percent Auto 71.7 % (50-75); Platelet Count 256 X10^3/uL (150-400); Red Blood Cell Count 4.44 X10^6/uL (4.0-5.2); Red Cell Distribution Width 14.5 % (11.6-14.8); White Blood Cell Count 7.5 X10^3/uL (4.5-11.0)
[2022-10-16 12:57] LABS: Alanine Aminotransferase 22 IU/L (<35); Albumin 3.6 g/dL (3.5-5.0); Albumin Globulin Ratio 1.1 (1.0-2.8); Alkaline Phosphatase 61 U/L (38-126); Aspartate Aminotransferase 20 IU/L (14-36); BUN Creatinine Ratio 10.5 (6-22); Bilirubin Total 0.3 mg/dL (0.2-1.3); Blood Urea Nitrogen 18 mg/dL (7-17); Calcium 8.8 mg/dL (8.4-10.2); Carbon Dioxide 28 mmol/L (22-32); Chloride 100 mmol/L (98-107); Estimated Glomerular Filt Rate 32 mL/min (>60); Globulin 3.4 g/dL (1.7-4.1); Glucose 106 mg/dL (80-110); HEMOLYSIS < 15 (0-50); Potassium 4.6 mmol/L (3.4-5.1); Sodium 135 mmol/L (137-145)
[2022-10-16 13:16] LABS: Free T3, Triiodothyronine Free 3.31 pg/mL (2.77-5.27); Free T4, Direct Thyroxine 1.76 ng/dL (0.78-2.19)
[2022-10-16 13:29] LABS: Thyroid Stimulating Hormone 2.21 uIU/mL (0.47-4.68)
[2022-10-16 16:44] LABS: Creatinine Urine Random 256.4 mg/dL
[2022-10-16 16:54] LABS: Protein (Total) Urine Random 42 mg/dL (0-12); Protein Creatinine Ratio Urine 0.16 GRAM/24H
[2022-10-17 00:04] LABS: Microalbumi Creatinin Ratio Ur 96.7 ug/mg CR (<30); Microalbumin Urine Random 24.8 mg/dL (0-1.6)
[2022-10-18 12:37] LABS: Calcium 8.8 mg/dL (8.7-10.3); Parathyroid Hormone, Intact 58 pg/mL (15-65)
== END ==
PROVIDERS: Family Provider Nurse Practitioner; PCP Nurse Practitioner; Referring Provider Student in an Organized Health Care Education/Training Program; Visit Provider Student in an Organized Health Care Education/Training Program
DX: N05.9 Unspecified nephritic syndrome with unspecified morphologic changes (principal); D64.9 Anemia, unspecified; R80.9 Proteinuria, unspecified; N25.81 Secondary hyperparathyroidism of renal origin; E03.9 Hypothyroidism, unspecified; E11.29 Type 2 diabetes mellitus with other diabetic kidney complication; I10 Essential (primary) hypertension; Z78.9 Other specified health status; Z79.01 Long term (current) use of anticoagulants; Z79.899 Other long term (current) drug therapy; Z86.718 Personal history of other venous thrombosis and embolism; N28.9 Disorder of kidney and ureter, unspecified
CPT/HCPCS: 36415; 80053; 82043; 82310; 82570; 83036; 83970; 84156; 84439; 84443; 84481; 85025

== ENCOUNTER → 2022-12-27 14:00 | Outpatient (CLI) | payer MEDICARE, OTHER, SELFPAY | PROVIDERS: Family Provider Nurse Practitioner; PCP Nurse Practitioner; Referring Provider Nurse Practitioner; Visit Provider Nurse Practitioner | DX: R42 Dizziness and giddiness (principal); Z86.79 Personal history of other diseases of the circulatory system; Z11.59 Encounter for screening for other viral diseases | CPT/HCPCS: 36415; 80048; 83735; 86803 ==

== ENCOUNTER → 2023-06-11 11:04 | Outpatient (CLI) | payer MEDICARE, OTHER, SELFPAY ==
[2023-06-11 12:23] LABS: Hematocrit 35.3 % (36-46); Hemoglobin 11.8 g/dL (12.0-16.0)
[2023-06-11 14:30] LABS: BUN Creatinine Ratio 18.4 (6-22); Blood Urea Nitrogen 36 mg/dL (7-17); Calcium 9.6 mg/dL (8.4-10.2); Carbon Dioxide 24 mmol/L (22-32); Chloride 103 mmol/L (98-107); Estimated Glomerular Filt Rate 27 mL/min (>60); Glucose 96 mg/dL (80-110); HEMOLYSIS < 15 (0-50); Sodium 135 mmol/L (137-145)
[2023-06-11 14:31] LABS: Potassium 5.6 mmol/L (3.4-5.1)
[2023-06-11 16:14] LABS: Creatinine Urine Random 158.2 mg/dL; Protein (Total) Urine Random 7 mg/dL (0-12); Protein Creatinine Ratio Urine 0.04 GRAM/24H
[2023-06-13 08:19] LABS: Parathyroid Hormone Int 31 pg/mL (15-65)
== END ==
PROVIDERS: Family Provider Nurse Practitioner; PCP Nurse Practitioner; Referring Provider Student in an Organized Health Care Education/Training Program; Visit Provider Student in an Organized Health Care Education/Training Program
DX: M05.9 Rheumatoid arthritis with rheumatoid factor, unspecified (principal); D70.9 Neutropenia, unspecified; D63.1 Anemia in chronic kidney disease; N25.81 Secondary hyperparathyroidism of renal origin; R80.9 Proteinuria, unspecified
CPT/HCPCS: 36415; 80048; 82570; 83970; 84156; 85014; 85018

== ENCOUNTER → 2023-06-14 14:16 | Outpatient (CLI) | payer MEDICARE, OTHER, SELFPAY | PROVIDERS: Family Provider Nurse Practitioner; PCP Nurse Practitioner; Referring Provider Student in an Organized Health Care Education/Training Program; Visit Provider Student in an Organized Health Care Education/Training Program | DX: E87.5 Hyperkalemia (principal) | CPT/HCPCS: 84133 ==

== ENCOUNTER → 2023-06-18 13:07 | Outpatient (CLI) | payer MEDICARE, OTHER, SELFPAY ==
--- NOTE | 2023-06-18 | DI.NM.S_ITS ---
PROCEDURE: [facility] PERF SPECT R&S PHARM Rest and pharmacological stress myocardial perfusion SPECT with gated imaging and ejection fraction RADIOPHARMACEUTICAL: 25.4 mCi Tc-99m tetrafosmin IV at rest and 26.4 mCi Tc-99m tetrafosmin IV at peak effect of pharmacological stress. Hli-zse-dlsimjaz was performed. INDICATIONS: Paroxysmal atrial fibrillation TECHNIQUE: Radiopharmaceutical was injected at peak stress test, and also at rest. SPECT images were obtained. SPECT myocardial perfusion images were displayed in short axis, horizontal long axis, and vertical long axis views. Gated images were reviewed using [employer] software. COMPARISON: None. CARDIAC STRESS: A pharmacologic stress test was performed under the supervision of an attending staff, using an infusion of regadenoson 0.4 mg IV. Hemodynamic data: There is normal blood pressure and heart rate response to pharmacologic stress. Symptoms: The patient denied anginal chest pain. EKG: No diagnostic changes of ischemia; no ectopy. FINDINGS: Raw data: There is good myocardial uptake of fair. There is evidence of patient motion artifacts. Dcrm-kh-imhtv ratio is 0.38 (normal is less than 0.38 for tetrafosmin tracer). Left ventricle function: Gated images demonstrate normal left ventricular wall thickening with septal dyssynchrony. There is evidence of transient ischemic dilation; TID is 1.48 (normal less than 1.3). Left ventricle resting end diastolic volume is 157 mL. Left ventricle stress ejection fraction is 65%; normal range is above 45%. Myocardial perfusion: There is a medium size, moderate intensity fixed inferior wall defect. No reversible perfusion defects. IMPRESSION: Poor quality study. No reversible perfusion defects. There is a medium size, moderate intensity fixed inferior wall defect that demonstrates normal wall motion and likely due to diaphragmatic attenuation. Increased transient ischemic dilation ratio may be consistent with balanced ischemia. Increased LVEDV with normal calculated ejection fraction. Septal dyssynchrony likely due to LBBB. Dictated by: Tri Kiser D.O. on 06/19/2023 at 16:25 Approved by: Tri Kiser D.O. on 06/19/2023 at 16:33
== END ==
PROVIDERS: Family Provider Nurse Practitioner; PCP Nurse Practitioner; Referring Provider Internal Medicine Cardiovascular Disease; Visit Provider Internal Medicine Cardiovascular Disease
DX: I48.0 Paroxysmal atrial fibrillation (principal)
CPT/HCPCS: 78452; 93017; A9502; J2785

== ENCOUNTER → 2023-06-20 13:01 | Outpatient (CLI) | payer MEDICARE, OTHER, SELFPAY ==
[2023-06-20 15:53] LABS: BUN Creatinine Ratio 16.1 (6-22); Blood Urea Nitrogen 27 mg/dL (7-17); Calcium 9.3 mg/dL (8.4-10.2); Carbon Dioxide 26 mmol/L (22-32); Chloride 104 mmol/L (98-107); Estimated Glomerular Filt Rate 32 mL/min (>60); Glucose 90 mg/dL (80-110); HEMOLYSIS < 15 (0-50); Potassium 5.2 mmol/L (3.4-5.1); Sodium 135 mmol/L (137-145)
== END ==
PROVIDERS: Family Provider Nurse Practitioner; PCP Nurse Practitioner; Referring Provider Student in an Organized Health Care Education/Training Program; Visit Provider Student in an Organized Health Care Education/Training Program
DX: N05.9 Unspecified nephritic syndrome with unspecified morphologic changes (principal)
CPT/HCPCS: 36415; 80048

== ENCOUNTER → 2023-08-07 10:14 | Outpatient (CLI) | payer MEDICARE, OTHER, SELFPAY ==
[2023-08-07 11:00] LABS: Add Manual Diff / Slide Review NO; Basophils Absolute Auto 100 /uL (0-100); Basophils Percent Auto 1.3 % (0-2); Eosinophils Absolute Auto 300 /uL (0-450); Eosinophils Percent Auto 4.4 % (2-4); Hemoglobin 11.4 g/dL (12.0-16.0); Lymphocytes Absolute Auto 900 /uL (1100-4500); Lymphocytes Percent Auto 12.2 % (25-40); Mean Corpuscular HGB Conc 33.4 % (30-36); Mean Corpuscular Hemoglobin 29.7 PG (26-34); Mean Corpuscular Volume 88.8 fL (80-100); Monocytes Absolute Auto 600 /uL (0-900); Monocytes Percent Auto 9.1 % (3-14); Neutrophils Absolute Auto 5200 /uL (1500-7000); Platelet Count 291 X10^3/uL (150-400); Red Blood Cell Count 3.82 X10^6/uL (4.0-5.2); Red Cell Distribution Width 13.6 % (11.6-14.8); White Blood Cell Count 7.1 X10^3/uL (4.5-11.0)
[2023-08-07 11:13] LABS: INR 1.8 (0.9-1.3); Prothrombin Time 20.8 SECONDS (9.4-12.5)
[2023-08-07 12:08] LABS: BUN Creatinine Ratio 14.7 (6-22); Blood Urea Nitrogen 24 mg/dL (7-17); Calcium 9.2 mg/dL (8.4-10.2); Carbon Dioxide 23 mmol/L (22-32); Chloride 103 mmol/L (98-107); Estimated Glomerular Filt Rate 34 mL/min (>60); Glucose 103 mg/dL (80-110); HEMOLYSIS < 15 (0-50); Potassium 4.9 mmol/L (3.4-5.1); Sodium 133 mmol/L (137-145)
== END ==
PROVIDERS: Family Provider Nurse Practitioner; PCP Nurse Practitioner; Referring Provider Internal Medicine Cardiovascular Disease; Visit Provider Internal Medicine Cardiovascular Disease
DX: I48.0 Paroxysmal atrial fibrillation (principal); I44.1 Atrioventricular block, second degree; I25.10 Atherosclerotic heart disease of native coronary artery without angina pectoris; R06.02 Shortness of breath; Z95.2 Presence of prosthetic heart valve; Z95.0 Presence of cardiac pacemaker
CPT/HCPCS: 36415; 80048; 85025; 85610

== ENCOUNTER → 2023-08-16 08:58 | Outpatient (CLI) | payer MEDICARE, OTHER, SELFPAY ==
[2023-08-16 11:18] LABS: Cholesterol 113 mg/dL (140-199); HDL Cholesterol 44 mg/dL (40-60); LDL Cholesterol Calculated 57 mg/dL (<100); Triglycerides 62 mg/dL (35-150)
== END ==
LOC: LAB 09:00
PROVIDERS: Family Provider Nurse Practitioner; PCP Nurse Practitioner; Referring Provider Internal Medicine Cardiovascular Disease; Visit Provider Internal Medicine Cardiovascular Disease
DX: E78.5 Hyperlipidemia, unspecified (principal)
CPT/HCPCS: 36415; 80061

== ENCOUNTER → 2023-08-22 15:30 | Outpatient (CLI) | payer MEDICARE, OTHER, SELFPAY ==
[2023-08-22 18:34] LABS: Hematocrit 34.5 % (36-46); Hemoglobin 11.5 g/dL (12.0-16.0)
[2023-08-22 18:36] LABS: BUN Creatinine Ratio 13.3 (6-22); Blood Urea Nitrogen 22 mg/dL (7-17); Calcium 8.8 mg/dL (8.4-10.2); Carbon Dioxide 25 mmol/L (22-32); Chloride 103 mmol/L (98-107); Estimated Glomerular Filt Rate 33 mL/min (>60); Glucose 81 mg/dL (80-110); HEMOLYSIS < 15 (0-50); Potassium 4.8 mmol/L (3.4-5.1); Sodium 136 mmol/L (137-145)
[2023-08-22 20:17] LABS: Creatinine Urine Random 124.4 mg/dL; Protein (Total) Urine Random 22 mg/dL (0-12); Protein Creatinine Ratio Urine 0.17 GRAM/24H
[2023-08-27 05:49] LABS: Parathyroid Hormone Int 41 pg/mL (15-65)
== END ==
LOC: LAB 15:33
PROVIDERS: Family Provider Nurse Practitioner; PCP Nurse Practitioner; Referring Provider Student in an Organized Health Care Education/Training Program; Visit Provider Student in an Organized Health Care Education/Training Program
DX: N05.9 Unspecified nephritic syndrome with unspecified morphologic changes (principal); D70.9 Neutropenia, unspecified; D63.1 Anemia in chronic kidney disease; N25.81 Secondary hyperparathyroidism of renal origin; R80.9 Proteinuria, unspecified
CPT/HCPCS: 36415; 80048; 82570; 83970; 84156; 85014; 85018

== ENCOUNTER → 2023-09-27 08:51 | Outpatient (CLI) | payer MEDICARE, OTHER, SELFPAY ==
--- NOTE | 2023-09-27 08:52 | DI.ECHO.S_ITS ---
[facility] +---------+ : : [address] : : : : [id number] : : : : Phone: [phone]---------+ Echocardiogram Report + + :Name: BILL KELLY Study Date: 09/27/2023 Height: 74 in : :[facility] ReadingLocation: Weight: 365 lb: : BSA: 2.8 m2 : :: 1950 Age: 72 yrs : :Reason For Study: ATRIAL FIBRILLATION : :Ordering Physician: HYUN, : :JESSICA Ricci Performed By: Hermes De Los Santos : :Referring: UNSPECIFIED : + + Interpretation Summary TDS - MORBID OBESITY, CONTRAST USED WITH MINIMAL IMPROVEMENT The patient has a paced rhythm. The left ventricle is normal in size. There is moderate concentric left ventricular hypertrophy. The ejection fraction is estimated to be 55-60%. The right ventricle is moderately dilated. The right ventricular systolic function is normal. There is a pacemaker lead in the right ventricle. Mild mitral annulus calcification with thickening of the mitral leaflets as well as mild calcification with mildly decreased excursion. The mean gradient across mitral valve about 4.12 mmHg. There was mild mitral regurgitation. About mild mitral stenosis. Previous mean gradient was about 5.6 mmHg. There is a bioprosthetic aortic valve. The prosthetic aortic valve is not well visualized. The peak aortic velocity is 2.08 m/sec. The aortic valve mean gradient is 10.5 mmHg. The peak aortic velocity on the previous exam was 1.74 m/sec. In January 2021 it was 2.42 m/s. There is moderate tricuspid regurgitation. Previously mild to moderate TR. Right ventricular systolic pressure is estimated to be 49 mmHg plus the clinically estimated CVP which cannot be estimated on this exam. Compared to the prior echo exam, there has been an increase in the severity of pulmonary hypertension. Procedure: A two-dimensional transthoracic echocardiogram with color flow and Doppler was performed. The study quality was technically difficult. The apical views were difficult to obtain and are suboptimal in quality. A contrast injection of Definity was performed to improve assessment of LV function. Comparison is made with the echocardiogram of 09/06/2022. The patient has a paced rhythm. Left Ventricle: There is moderate concentric left ventricular hypertrophy. The left ventricle is normal in size. There is no thrombus. The ejection fraction is estimated to be 55-60%. Septal motion is consistent with conduction abnormality. Right Ventricle: The right ventricle is not well visualized. The right ventricle is moderately dilated. There is a pacemaker lead in the right ventricle. The right ventricular systolic function is normal. Atria: The left atrium is not well visualized. Right atrium not well visualized. The interatrial septum is not well visualized. Mitral Valve: Mild mitral annulus calcification with thickening of the mitral leaflets as well as mild calcification with mildly decreased excursion. The mean gradient across mitral valve about 4.12 mmHg. There was mild mitral regurgitation. About mild mitral stenosis. Previous mean gradient was about 5.6 mmHg. The mitral valve mean gradient is 4.1 mmHg. There is mild mitral regurgitation. Aortic Valve: There is a bioprosthetic aortic valve. The prosthetic aortic valve is not well visualized. The peak aortic velocity is 2.08 m/sec. The aortic valve mean gradient is 10.5 mmHg. The peak aortic velocity on the previous exam was 1.74 m/sec. No aortic regurgitation is present. Tricuspid Valve: The tricuspid valve is not well visualized. There is no tricuspid stenosis. There is moderate tricuspid regurgitation. Right ventricular systolic pressure is estimated to be 49 mmHg plus the clinically estimated CVP which cannot be estimated on this exam. Compared to the prior echo exam, there has been an increase in the severity of pulmonary hypertension. Pulmonic Valve: The pulmonic valve is not well visualized. There is no pulmonic valvular stenosis. There is mild pulmonic regurgitation. Great Vessels: The aortic root is mildly dilated. The dimensions of the ascending aorta are normal. The inferior vena cava was not visualized. Pericardium/ Pleura There is no pericardial effusion. There is an anterior echo-free space consistent with a fat pad. There is no pleural effusion. MMode/2D Measurements & Calculations LVIDd: 4.3 cm LVOT diam: 2.2 cm LVIDs: 3.0 cm Ao root diam: 4.1 cm FS: 31.7 % asc Aorta Diam: 3.4 cm IVSd: 1.6 cm Ao Arch Diam (Prox Trans): 3.6 cm LVPWd: 1.5 cm LV cummings. diameter/BSA (cm/m^2): 1.5 LV sys. diameter/BSA (cm/m^2): 1.1 Doppler Measurements & Calculations Ao V2 max: 207.6 cm/sec LVOT Max Kamaljit: 89.5 cm/sec Ao V2 mean: 153.3 cm/sec LV V1 max P.2 mmHg Ao max P.3 mmHg LV V1 VTI: 21.1 cm Ao mean P.5 mmHg VALENTIN(I,D): 1.7 cm2 Ao V2 VTI: 47.6 cm VALENTIN(V,D): 1.6 cm2 sev ratio: 0.44 VALENTIN indexed to BSA (cm^2/m^2): 0.60 MV E max kamaljit: 140.2 cm/sec TR max kamaljit: 329.7 cm/sec MV A max kamaljit: 37.9 cm/sec TR max P.7 mmHg MV E/A: 3.7 PA V2 max: 110.3 cm/sec MV dec time: 0.31 sec PA V2 mean: 61.0 cm/sec MVA(VTI): 2.1 cm2 PA mean P.8 mmHg PA pr(Accel): 44.7 mmHg MV V2 mean: 92.4 cm/sec SV(LVOT): 79.9 ml MV mean P.1 mmHg MV V2 VTI: 37.6 cm Reading Physician:01:[id number] PM
== END ==
PROVIDERS: Family Provider Nurse Practitioner; PCP Nurse Practitioner; Referring Provider Nurse Practitioner Family; Visit Provider Nurse Practitioner Family
DX: I08.1 Rheumatic disorders of both mitral and tricuspid valves (principal); I77.810 Thoracic aortic ectasia; I48.0 Paroxysmal atrial fibrillation; Z95.2 Presence of prosthetic heart valve; Z95.0 Presence of cardiac pacemaker
CPT/HCPCS: C8929; Q9957

== ENCOUNTER → 2023-12-25 11:16 | Outpatient (CLI) | payer MEDICARE, OTHER, SELFPAY ==
[2023-12-25 12:11] LABS: Add Manual Diff / Slide Review NO; Basophils Absolute Auto 100 /uL (0-100); Basophils Percent Auto 1.1 % (0-2); Eosinophils Absolute Auto 400 /uL (0-450); Eosinophils Percent Auto 5.4 % (2-4); Hemoglobin 11.5 g/dL (12.0-16.0); Lymphocytes Absolute Auto 1100 /uL (1100-4500); Lymphocytes Percent Auto 15.6 % (25-40); Mean Corpuscular HGB Conc 33.7 % (30-36); Mean Corpuscular Hemoglobin 30.9 PG (26-34); Mean Corpuscular Volume 91.8 fL (80-100); Monocytes Absolute Auto 800 /uL (0-900); Monocytes Percent Auto 10.8 % (3-14); Neutrophils Absolute Auto 4700 /uL (1500-7000); Neutrophils Percent Auto 67.1 % (50-75); Platelet Count 242 X10^3/uL (150-400); Red Cell Distribution Width 14.1 % (11.6-14.8)
[2023-12-25 12:17] LABS: Hemoglobin A1C% w Est Avg Glu 5.8 % (4.0-6.0)
[2023-12-25 13:27] LABS: HEMOLYSIS < 15 (0-50); Total Iron Binding Capacity 256 ug/dL (265-497); Transferrin 183 mg/dL (206-381)
[2023-12-25 14:19] LABS: Folate 7.7 ng/mL (2.76-20.0); Vitamin B12 354 pg/mL (239-931)
[2023-12-25 21:44] LABS: Iron 61 ug/dL (37-170); Percent Iron Saturation 24 % (15-50)
== END ==
PROVIDERS: Family Provider Nurse Practitioner; PCP Nurse Practitioner; Referring Provider Physician Assistant; Visit Provider Physician Assistant
DX: R14.0 Abdominal distension (gaseous) (principal); E11.9 Type 2 diabetes mellitus without complications; R14.2 Eructation; K21.9 Gastro-esophageal reflux disease without esophagitis; D63.8 Anemia in other chronic diseases classified elsewhere; I10 Essential (primary) hypertension; Z79.01 Long term (current) use of anticoagulants; Z79.899 Other long term (current) drug therapy; E03.9 Hypothyroidism, unspecified
CPT/HCPCS: 36415; 82607; 82746; 83036; 83540; 83550; 84443; 85025

== ENCOUNTER → 2023-12-26 10:06 | Outpatient (CLI) | payer MEDICARE, OTHER, SELFPAY ==
[2023-12-30 13:36] LABS: H. Pylori Antigen Stool Negative (Negative)
== END ==
LOC: LAB 10:07
PROVIDERS: Family Provider Nurse Practitioner; PCP Nurse Practitioner; Referring Provider Physician Assistant; Visit Provider Physician Assistant
DX: R14.0 Abdominal distension (gaseous) (principal); K21.9 Gastro-esophageal reflux disease without esophagitis; R14.2 Eructation
CPT/HCPCS: 87338

== ENCOUNTER → 2024-01-10 10:47 | Outpatient (CLI) | payer MEDICARE, OTHER, SELFPAY ==
[2024-01-10 12:14] LABS: Hematocrit 34.6 % (36-46); Hemoglobin 11.6 g/dL (12.0-16.0)
[2024-01-10 12:44] LABS: BUN Creatinine Ratio 12.3 (6-22); Blood Urea Nitrogen 23 mg/dL (7-17); Carbon Dioxide 27 mmol/L (22-32); Chloride 106 mmol/L (98-107); Estimated Glomerular Filt Rate 28 mL/min (>60); Glucose 120 mg/dL (80-110); HEMOLYSIS < 15 (0-50); Sodium 136 mmol/L (137-145)
[2024-01-10 12:45] LABS: Potassium 5.4 mmol/L (3.4-5.1)
[2024-01-10 17:49] LABS: Creatinine Urine Random 20.46 mg/dL; Protein (Total) Urine Random 9 mg/dL (0-12); Protein Creatinine Ratio Urine 0.43 GRAM/24H
== END ==
LOC: LAB 10:49
PROVIDERS: Family Provider Nurse Practitioner; PCP Nurse Practitioner; Referring Provider Student in an Organized Health Care Education/Training Program; Visit Provider Student in an Organized Health Care Education/Training Program
DX: N05.9 Unspecified nephritic syndrome with unspecified morphologic changes (principal); D70.9 Neutropenia, unspecified; D63.1 Anemia in chronic kidney disease; N25.81 Secondary hyperparathyroidism of renal origin; R80.9 Proteinuria, unspecified
CPT/HCPCS: 36415; 80048; 82570; 83970; 84156; 85014; 85018

== ENCOUNTER → 2024-01-14 06:42 | Outpatient (CLI) | payer MEDICARE, OTHER, SELFPAY ==
[2024-01-14 07:30] LABS: HEMOLYSIS < 15 (0-50); Potassium 4.9 mmol/L (3.4-5.1)
== END ==
PROVIDERS: Family Provider Nurse Practitioner; PCP Nurse Practitioner; Referring Provider Student in an Organized Health Care Education/Training Program; Visit Provider Student in an Organized Health Care Education/Training Program
DX: E78.5 Hyperlipidemia, unspecified (principal)
CPT/HCPCS: 36415; 84132

== ENCOUNTER → 2024-07-24 09:04 | Outpatient (CLI) | payer MEDICARE, OTHER, SELFPAY ==
[2024-07-24 10:11] LABS: Hematocrit 33.1 % (36-46)
[2024-07-24 10:40] LABS: Creatinine Urine Random 96.47 mg/dL; Protein (Total) Urine Random 10 mg/dL (0-12)
[2024-07-24 10:49] LABS: BUN Creatinine Ratio 14.9 (6-22); Blood Urea Nitrogen 29 mg/dL (7-17); Calcium 9.3 mg/dL (8.4-10.2); Carbon Dioxide 25 mmol/L (22-32); Chloride 104 mmol/L (98-107); Estimated Glomerular Filt Rate 27 mL/min (>60); Glucose 136 mg/dL (80-110); HEMOLYSIS < 15 (0-50); Potassium 4.8 mmol/L (3.4-5.1); Sodium 136 mmol/L (137-145)
[2024-07-25 10:11] LABS: Parathyroid Hormone Int 30 pg/mL (15-65)
== END ==
PROVIDERS: Family Provider Nurse Practitioner; PCP Family Medicine; Referring Provider Student in an Organized Health Care Education/Training Program; Visit Provider Student in an Organized Health Care Education/Training Program
DX: N05.9 Unspecified nephritic syndrome with unspecified morphologic changes (principal); D70.9 Neutropenia, unspecified; D63.1 Anemia in chronic kidney disease; N25.81 Secondary hyperparathyroidism of renal origin; R80.9 Proteinuria, unspecified
CPT/HCPCS: 36415; 80048; 82570; 83970; 84156; 85014; 85018